=== PATIENT | male | born 1965 | race African-American/Black ===

== ENCOUNTER 2016-12-26 13:08 | Inpatient (IN) | payer OTHER ==
[2016-12-26 16:02] VITALS: BMI 29.6
--- NOTE | 2016-12-26 16:41 | HP ---
Admission [facility] Chief Complaint: i am here for rehab from alcohol,cocaine Allergies/Adverse Reactions: Allergies Allergy/AdvReac Type Severity Reaction Status Date / Time No Known Drug Allergies Allergy Verified 12/26/16 16:27 Iodinated Contrast Media - AdvReac Severe Vomiting Verified 12/26/16 16:27 Oral and [Iodinated Contrast Media - IV Dye] History of Present Illness: this 51 years old male with alcohol and cocaine dependence,seeking help for rehab,last detox aci from 12/22/16 to 12/26/16 asthma gerd migraine headache low back pain bipolar disorder longest period of sobriety 4 years Exam Limitations: No Limitations - Ebola screening Have you traveled outside of the country in the last 21 days: No Have you had contact with anyone from an Ebola affected area: No Have you been sick,other than usual withdrawal symptoms: No - Review of Systems Constitutional: No Symptoms Reported, Loss of Appetite EENT: reports: No Symptoms Reported Respiratory: reports: No Symptoms reported Cardiac: reports: No Symptoms Reported GI: reports: No Symptoms Reported : reports: No Symptoms Reported Musculoskeletal: reports: No Symptoms Reported Integumentary: reports: No Symptoms Reported Neuro: reports: No Symptoms reported Endocrine: reports: No Symptoms Reported Hematology: reports: No Symptoms Reported Psychiatric: reports: other (bipolar disorder) Other Systems: Reviewed and Negative Patient History - Patient Medical History Hx Anemia: No Hx Asthma: Yes (on albuterol inhaler) Hx Chronic Obstructive Pulmonary Disease (COPD): No Hx Cancer: No Hx Cardiac Disorders: No Hx Congestive Heart Failure: No Hx Hypertension: No Hx Hypercholesterolemia: No Hx Pacemaker: No HX Cerebrovascular Accident: No Hx Seizures: No Hx Diabetes: No Hx Gastrointestinal Disorders: Yes (GERD) Hx Liver Disease: No Hx Genitourinary Disorders: No Hx Sexually Transmitted Disorders: No Hx Renal Disease (ESRD): No Hx Thyroid Disease: No Hx Human Immunodeficiency Virus (HIV): No (NEGATIVE HX BUT ON PROPHYLAXIS DUE TO PARTNER POSITIVE STATUS PER PT.) Hx Hepatitis C: No Hx Depression: Yes Hx Suicide Attempt: No (DENIES) Hx Bipolar Disorder: Yes Hx Schizophrenia: No Other Medical History: no suicidal,no homicidal,low back pain,s/p surgry of right thumb - Patient Surgical History Past Surgical History: Yes Hx Neurologic Surgery: No Hx Cataract Extraction: No Hx Cardiac Surgery: No Hx Lung Surgery: No Hx Breast Surgery: No Hx Breast Biopsy: No Hx Abdominal Surgery: Yes (RT.INGUINAL REPAIR 1986) Hx Appendectomy: Yes (1984) Hx Cholecystectomy: No Hx Genitourinary Surgery: No Hx Section: No Hx Orthopedic Surgery: No Anesthesia Reaction: No - PPD History Previous Implant?: Yes Documented Results: Negative w/o proof Date: 12/09/15 Results: 0 mm PPD to be Administered?: Yes - Smoking Cessation Smoking history: Current every day smoker Have you smoked in the past 12 months: Yes Aproximately how many cigarettes per day: 5 Hx Chewing Tobacco Use: No Initiated information on smoking cessation: Yes 'Breaking Loose' booklet given: 12/26/16 - Substance & Tx. History Hx Alcohol Use: Yes Hx Substance Use: Yes Substance Use Type: Alcohol, Cocaine Hx Substance Use Treatment: Yes ([facility] 12/22/16 to 12/26/16) - Substances Abused Cocaine Route: Inhalation Frequency: Daily Amount used: $50-100 Age of first use: 19 Date of Last Use: 12/18/16 Alcohol-beer/cognac Route: Oral Frequency: Daily Amount used: 3 (40 oz.)/1 1 /2 pts. Age of first use: 10 Date of Last Use: 12/21/16 Family Disease History - Family Disease History Family Disease History: Diabetes: Mother, Heart Disease: Mother, CA: Mother, Respiratory: Mother Admission Physical Exam S - Vital Signs Vital Signs: Vital Signs - 24 hr 12/26/16 15:58 Temperature 98.3 F Pulse Rate 66 Respiratory 14 Rate Blood Pressure 140/107 - Physical General Appearance: Yes: Within Normal Limits HEENTM: Yes: Within Normal Limits, Normal ENT Inspection, LASHELL Respiratory: Yes: Within Normal Limits, Lungs Clear, Normal Breath Sounds Neck: Yes: Within Normal Limits Breast: Yes: Within Normal Limits Cardiology: Yes: Within Normal Limits, Regular Rhythm, Regular Rate, Tachycardia Abdominal: Yes: Within Normal Limits, Normal Bowel Sounds, Non Tender, Soft Genitourinary: Yes: Within Normal Limits Back: Yes: Within Normal Limits Musculoskeletal: Yes: Within Normal Limits Extremities: Yes: Within Normal Limits, Normal Range of Motion, Non-Tender Neurological: Yes: Within Normal Limits, oil well drilling manager II-XII NML intact, Alert, Motor Strength 5/5 Integumentary: Yes: Within Normal Limits Lymphatic: Yes: Within Normal Limits - Diagnostic (1) Cocaine dependence Current Visit: No Status: Acute Qualifiers: Qualified Code(s): F14.20 - Cocaine dependence, uncomplicated (2) Asthma Current Visit: No Status: Chronic Qualifiers: Qualified Code(s): J45.20 - Mild intermittent asthma, uncomplicated (3) GERD (gastroesophageal reflux disease) Current Visit: No Status: Chronic Qualifiers: Qualified Code(s): K21.9 - Gastro-esophageal reflux disease without esophagitis (4) Hx of migraine headaches Current Visit: No Status: Chronic (5) Nicotine dependence Current Visit: No Status: Chronic Qualifiers: Qualified Code(s): F17.210 - Nicotine dependence, cigarettes, uncomplicated (6) Bipolar disorder Current Visit: No Status: Suspected (7) Low back pain Current Visit: Yes Status: Acute Cleared for Admission [facility] - Detox or Rehab Claeared for Rehab Admission: Yes S Breath Alcohol Content Breath Alcohol Content: 0 Urine Drug Screen - Results Drug Screen Negative: No Urine Drug Screen Results: BZO-Benzodiazepines
[2016-12-26] MEDS ORDERED: MENTHOL/PHENOL 1 EACH UD MM PRN (16:49)
[2016-12-26] MEDS ORDERED: hydrOXYzine PAMOATE 50 MG CAPSULE (FP) PO PRN (16:49)
[2016-12-26] MEDS ORDERED: LOPERAMIDE HCL 2 MG CAPSULE PO PRN (16:49)
[2016-12-26] MEDS ORDERED: MAG HYDROX/AL HYDROX/SIMETH 30 ML UNIT-DOSE CUP PO PRN (16:49)
[2016-12-26] MEDS ORDERED: MAGNESIUM CITRATE 300 ML BOTTLE PO PRN (16:49)
[2016-12-26] MEDS ORDERED: IBUPROFEN 400 MG TABLET (FP) PO PRN (16:49)
[2016-12-26] MEDS ORDERED: MAGNESIUM HYDROX 2400MG/30ML ORAL SUSPENSION 30 ML CUP PO PRN (16:49)
[2016-12-26] MEDS ORDERED: guaiFENesin/D-METHORPHAN HB 10 ML UNIT-DOSE CUPS PO PRN (16:49)
[2016-12-26] MEDS ORDERED: TUBERCULIN PPD 5 TU/0.1ML VIAL ID ONE (18:15)
[2016-12-26] MEDS: SUMAtriptan SUCCINATE 50 MG TABLET PO PRN (18:26)
[2016-12-26] MEDS: BUDESONIDE/FORMETEROL FUMARATE 80/4.5 mcg INHALER IH SCH (21:12)
[2016-12-26] MEDS: THIAMINE HCL 100 MG TABLET (FP) PO SCH (21:12)
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
--- NOTE | 2016-12-27 09:31 | EKG ---
Test Reason : Blood Pressure : / mmHG Vent. Rate : 060 BPM Atrial Rate : 060 BPM P-R Int : 188 ms QRS Dur : 080 ms QT Int : 388 ms P-R-T Axes : 038 -02 002 degrees QTc Int : 388 ms NORMAL SINUS RHYTHM NONSPECIFIC T WAVE ABNORMALITY ABNORMAL ECG NO PREVIOUS ECGS AVAILABLE Confirmed by NUVIA ROE MD ([id number]) on 12/27/2016 9:30:25 AM Referred By: Confirmed By:NUVIA ROE MD
[2016-12-27] MEDS: PRENATAL VITAMINS W/ FOLIC ACID TABLET (FP) PO SCH (09:53)
[2016-12-27] MEDS: PANTOPRAZOLE 40 MG TABLET (FP) PO SCH (09:53)
[2016-12-27] MEDS: BUDESONIDE/FORMETEROL FUMARATE 80/4.5 mcg INHALER IH SCH ×2 (09:56→21:29)
[2016-12-27 10:07] LABS: MCH 30.1 pg (25.7-33.7); MCHC 32.9 g/dl (32.0-35.9); MEAN CELL VOLUME 91.5 fl (80-96); MEAN PLT VOLUME 9.3 fl (7.5-11.1); PLATELET COUNT 212 K/MM3 (134-434); RDW 14.6 % (11.9-15.9)
[2016-12-27 10:19] LABS: ALBUMIN 3.5 g/dl (3.4-5.0); ANION GAP 10 (8-16); CALCIUM 8.9 mg/dL (8.5-10.1); CO2 28 mmol/L (21-32); GLUCOSE,RANDOM 79 mg/dL (74-106)
[2016-12-27 10:25] LABS: ALK PHOS 46 U/L (45-117); BILIRUBIN,TOTAL 0.5 mg/dL (0.2-1.0); SGOT/AST 19 U/L (15-37); SGPT/ALT 20 U/L (12-78)
[2016-12-27 11:55] LABS: HIV 1 & 2 AB NEGATIVE; HIV 1 AGp24 NEGATIVE
[2016-12-27 14:56] LABS: URINE APPEARANCE CLEAR; URINE BILIRUBIN NEGATIVE (NEGATIVE); URINE BLOOD NEGATIVE (NEGATIVE); URINE COLOR STRAW; URINE GLUCOSE (UA) NEGATIVE (NEGATIVE); URINE KETONE NEGATIVE (NEGATIVE); URINE LEUK ESTERASE NEGATIVE (NEGATIVE); URINE NITRITE NEGATIVE (NEGATIVE); URINE PROTEIN NEGATIVE (NEGATIVE); URINE UROBILINOGEN NEGATIVE E.U./dl (0.2-1.0)
[2016-12-27] MEDS: THIAMINE HCL 100 MG TABLET (FP) PO SCH (21:18)
[2016-12-27] MEDS ORDERED: traZODone HCL 100 MG TABLET (FP) PO SCH (22:00)
[2016-12-28] MEDS: SUMAtriptan SUCCINATE 50 MG TABLET PO PRN (03:54)
[2016-12-28] MEDS: PANTOPRAZOLE 40 MG TABLET (FP) PO SCH (09:32)
[2016-12-28] MEDS: BUDESONIDE/FORMETEROL FUMARATE 80/4.5 mcg INHALER IH SCH ×2 (09:32→21:23)
[2016-12-28] MEDS: PRENATAL VITAMINS W/ FOLIC ACID TABLET (FP) PO SCH (09:32)
--- NOTE | 2016-12-28 11:15 | PN ---
Psychiatric Progress Note Vital Signs: Vital Signs Period Temp Pulse Resp BP Sys/Alejandra Pulse Ox Last 24 Hr 97.8 F 64-73 18-18 123-142/91-95 Date of Session: 12/28/16 Chief Complaint:: Headache HPI: Patient addressing Alcohol and Cocaine Dependence comorbid with Nicotine Dependence, Postraumatic Stress Disorder and Schizoaffective Disorder ROS: Asthma, GERD, Tinea Pedis, LBP Current Medications: Active Medications Generic Name Dose Route Start Last Admin Trade Name Freq PRN Reason Stop Dose Admin Acetaminophen 650 mg 12/26/16 16:49 Tylenol - PO Q4H PRN PAIN Al Hydroxide/Mg Hydroxide 30 ml 12/26/16 16:49 Mylanta Oral Suspension - PO Q6H PRN DYSPEPSIA Albuterol Sulfate 2 puff 12/26/16 16:52 Ventolin Hfa Inhaler - IH Q4H PRN ASTHMA Budesonide/Formoterol Fumarate 2 puff 12/26/16 22:00 12/28/16 09:32 Symbicort 80/4.5mcg - IH 2 puff BID FERMIN Administration Diphenhydramine HCl 50 mg 12/26/16 16:49 Benadryl - PO HSMR1 PRN INSOMNIA Eucalyptus/Menthol/Phenol/Sorbitol 1 each 12/26/16 16:49 Cepastat Lozenge - MM Q4H PRN SORE THROAT Guaifenesin 10 ml 12/26/16 16:49 Robitussin Dm - PO Q6H PRN COUGH Hydroxyzine Pamoate 50 mg 12/26/16 16:49 12/27/16 03:27 Vistaril - PO 50 mg Q4H PRN Administration AGITATION Ibuprofen 400 mg 12/26/16 16:49 Motrin - PO Q6H PRN SEVERE PAIN Loperamide HCl 4 mg 12/26/16 16:49 Imodium - PO Q6H PRN DIARRHEA Magnesium Citrate 300 ml 12/26/16 16:49 Citroma - PO Q48H PRN CONSTIPATION Magnesium Hydroxide 30 ml 12/26/16 16:49 Milk Of Magnesia - PO DAILY PRN CONSTIPATION Pantoprazole Sodium 40 mg 12/27/16 10:00 12/28/16 09:32 Protonix - PO 40 mg DAILY FERMIN Administration Multivit/Folic Acid/Iron 1 tab 12/27/16 10:00 12/28/16 09:32 Vitamins (Sjr) - PO 1 tab DAILY FERMIN Administration Pseudoephedrine/Triprolidine 1 combo 12/26/16 16:49 Actifed - PO TID PRN NASAL CONGESTION Sumatriptan Succinate 50 mg 12/26/16 16:52 12/28/16 03:54 Imitrex - PO 50 mg DAILY PRN Administration HEADACHE Thiamine HCl 100 mg 12/26/16 22:00 12/27/16 21:18 Vitamin B1 - PO 100 mg HS FERMIN Administration Trazodone HCl 100 mg 12/27/16 22:00 12/27/16 21:17 Desyrel - PO 100 mg HS FERMIN Administration Medication(s) Change(s): 1) D/C Trazadone 100 mg po HS. 2) Doxepin 50 mg po HS Current Side Effect: Yes (headache) Lab tests ordered: Yes Lab tests reviewed: Yes Provider note:: Patient reports that after taking Trazadone before going to bed last night, he woke up in the middle of the night with a terrible headach. He said that he had experienced headache before after taking Trazadone. Claims this headache is different from his regular migraine headach he usually experiences. Doxepin, an alternative medication fr sleep was discussed with patient and he agreed to try it Total face to face time:: 25 Mental Status Exam - Mental Status Exam Alert and Oriented to: Time, Place, Person Cognitive Function: Fair Mood: Hopeful, Euthymic Affect: Appropriate Patient Behavior: Cooperative Speech Pattern: Clear Voice Loudness: Normal Thought Process: Intact, Goal Oriented Thought Disorder: Not Present Hallucinations: Denies Suicidal Ideation: Denies Homicidal Ideation: Denies Insight/Judgement: Fair Sleep: Poorly Appetite: Good Muscle strength/Tone: Normal Gait/Station: Normal Psychiatric Treatment Plan - Problem List (1) Alcohol dependence Current Visit: Yes (2) Cocaine dependence Current Visit: No Qualifiers: Substance use status: uncomplicated Qualified Code(s): F14.20 - Cocaine dependence, uncomplicated (3) Nicotine dependence Current Visit: No Qualifiers: Nicotine product type: cigarettes Substance use status: uncomplicated Qualified Code(s): F17.210 - Nicotine dependence, cigarettes, uncomplicated (4) Low back pain Current Visit: Yes (5) Tinea pedis Current Visit: No Qualifiers: Laterality: bilateral Qualified Code(s): B35.3 - Tinea pedis (6) Asthma Current Visit: No Qualifiers: Asthma severity: mild intermittent Asthma complication type: uncomplicated Qualified Code(s): J45.20 - Mild intermittent asthma, uncomplicated (7) GERD (gastroesophageal reflux disease) Current Visit: No Qualifiers: Esophagitis presence: without esophagitis Qualified Code(s): K21.9 - Gastro-esophageal reflux disease without esophagitis (8) Hx of migraine headaches Current Visit: No (9) PTSD (post-traumatic stress disorder) Current Visit: Yes (10) Schizoaffective disorder Current Visit: Yes Initial treatment plan: 1) Discontinue Trazadone 100 mg po HS. 2) Start Doxepin 50 mg po HS for insomnia. 3) Monitor progress
[2016-12-28] MEDS: THIAMINE HCL 100 MG TABLET (FP) PO SCH (21:15)
[2016-12-28] MEDS ORDERED: DOXEPIN HCL 50 MG CAPSULE PO SCH (22:00)
[2016-12-29] MEDS: SUMAtriptan SUCCINATE 50 MG TABLET PO PRN (06:14)
[2016-12-29] MEDS: PANTOPRAZOLE 40 MG TABLET (FP) PO SCH (10:07)
[2016-12-29] MEDS: PRENATAL VITAMINS W/ FOLIC ACID TABLET (FP) PO SCH (10:07)
[2016-12-29] MEDS: BUDESONIDE/FORMETEROL FUMARATE 80/4.5 mcg INHALER IH SCH ×2 (10:07→21:12)
--- NOTE | 2016-12-29 11:13 | PN ---
Psychiatric Progress Note Vital Signs: Vital Signs Period Temp Pulse Resp BP Sys/Alejandra Pulse Ox Last 24 Hr 97.6 F 65 18-18 146/96 Date of Session: 12/29/16 Chief Complaint:: Headache HPI: Patient addressing Alcohol and Cocaine Dependence comorbid with Nicotine Dependence, Postraumatic Stress Disorder and Schizoaffective Disorder ROS: Asthma, GERD, Tinea Pedis, LBP Current Medications: Active Medications Generic Name Dose Route Start Last Admin Trade Name Freq PRN Reason Stop Dose Admin Acetaminophen 650 mg 12/26/16 16:49 Tylenol - PO Q4H PRN PAIN Al Hydroxide/Mg Hydroxide 30 ml 12/26/16 16:49 Mylanta Oral Suspension - PO Q6H PRN DYSPEPSIA Albuterol Sulfate 2 puff 12/26/16 16:52 Ventolin Hfa Inhaler - IH Q4H PRN ASTHMA Budesonide/Formoterol Fumarate 2 puff 12/26/16 22:00 12/29/16 10:07 Symbicort 80/4.5mcg - IH 2 puff BID FERMIN Administration Diphenhydramine HCl 50 mg 12/26/16 16:49 Benadryl - PO HSMR1 PRN INSOMNIA Eucalyptus/Menthol/Phenol/Sorbitol 1 each 12/26/16 16:49 Cepastat Lozenge - MM Q4H PRN SORE THROAT Guaifenesin 10 ml 12/26/16 16:49 Robitussin Dm - PO Q6H PRN COUGH Hydroxyzine Pamoate 50 mg 12/26/16 16:49 12/27/16 03:27 Vistaril - PO 50 mg Q4H PRN Administration AGITATION Ibuprofen 400 mg 12/26/16 16:49 12/29/16 10:10 Motrin - PO 400 mg Q6H PRN Administration SEVERE PAIN Loperamide HCl 4 mg 12/26/16 16:49 Imodium - PO Q6H PRN DIARRHEA Magnesium Citrate 300 ml 12/26/16 16:49 Citroma - PO Q48H PRN CONSTIPATION Magnesium Hydroxide 30 ml 12/26/16 16:49 Milk Of Magnesia - PO DAILY PRN CONSTIPATION Pantoprazole Sodium 40 mg 12/27/16 10:00 12/29/16 10:07 Protonix - PO 40 mg DAILY FERMIN Administration Multivit/Folic Acid/Iron 1 tab 12/27/16 10:00 12/29/16 10:07 Vitamins (Sjr) - PO 1 tab DAILY FERMIN Administration Pseudoephedrine/Triprolidine 1 combo 12/26/16 16:49 Actifed - PO TID PRN NASAL CONGESTION Sumatriptan Succinate 50 mg 12/26/16 16:52 12/29/16 06:14 Imitrex - PO 50 mg DAILY PRN Administration HEADACHE Thiamine HCl 100 mg 12/26/16 22:00 12/28/16 21:15 Vitamin B1 - PO 100 mg HS FERMIN Administration Medication(s) Change(s): D/C Doxepin 50 mg po HS Current Side Effect: No Lab tests ordered: Yes Lab tests reviewed: Yes Provider note:: Patient was switched from Trazadone to Doxepin because he complained of experiencing headache yesterday morning after taking Trazadone the night before. He took Doxepin last night and claims that he woke up this morning again with a terrible headache. Told health science writer that he had some relieve from that headache only after taking imitrex. He requests that Doxepin be discontinued and see what happens taking onle Benadryl. He said that while in detox, he took Benadryl and did not experienced headache. Total face to face time:: 25 Mental Status Exam - Mental Status Exam Alert and Oriented to: Time, Place, Person Cognitive Function: Fair Mood: Hopeful, Euthymic Affect: Appropriate Patient Behavior: Cooperative Speech Pattern: Clear Voice Loudness: Normal Thought Process: Intact, Goal Oriented Thought Disorder: Not Present Hallucinations: Denies Suicidal Ideation: Denies Homicidal Ideation: Denies Insight/Judgement: Fair Sleep: Poorly Appetite: Good Muscle strength/Tone: Normal Gait/Station: Normal Psychiatric Treatment Plan - Problem List (1) Alcohol dependence Current Visit: Yes (2) Cocaine dependence Current Visit: No Qualifiers: Substance use status: uncomplicated Qualified Code(s): F14.20 - Cocaine dependence, uncomplicated (3) Nicotine dependence Current Visit: No Qualifiers: Nicotine product type: cigarettes Substance use status: uncomplicated Qualified Code(s): F17.210 - Nicotine dependence, cigarettes, uncomplicated (4) Low back pain Current Visit: Yes (5) Tinea pedis Current Visit: No Qualifiers: Laterality: bilateral Qualified Code(s): B35.3 - Tinea pedis (6) Asthma Current Visit: No Qualifiers: Asthma severity: mild intermittent Asthma complication type: uncomplicated Qualified Code(s): J45.20 - Mild intermittent asthma, uncomplicated (7) GERD (gastroesophageal reflux disease) Current Visit: No Qualifiers: Esophagitis presence: without esophagitis Qualified Code(s): K21.9 - Gastro-esophageal reflux disease without esophagitis (8) Hx of migraine headaches Current Visit: No (9) PTSD (post-traumatic stress disorder) Current Visit: Yes (10) Schizoaffective disorder Current Visit: Yes Initial treatment plan: 1) Discontinue Doxepin 50 mg po HS. 2) Monitor progress
[2016-12-29] MEDS: ACETAMINOPHEN 325 MG TABLET (FP) PO PRN (13:47)
[2016-12-29] MEDS ORDERED: IBUPROFEN 600 MG TABLET (FP) PO PRN (15:03)
[2016-12-29] MEDS ORDERED: LIDOCAINE 5% TOPICAL PATCH TP SCH (15:15)
[2016-12-29] MEDS: LIDOCAINE 5% TOPICAL PATCH TP SCH (15:50)
[2016-12-29] MEDS: THIAMINE HCL 100 MG TABLET (FP) PO SCH (21:11)
[2016-12-29] MEDS: diphenhydrAMINE HCL 50 MG CAPSULE PO PRN (21:14)
[2016-12-29] MEDS ORDERED: LIDOCAINE PATCH REMOVAL MC SCH (22:00)
[2016-12-29] MEDS: LIDOCAINE PATCH REMOVAL MC SCH (22:28)
[2016-12-30] MEDS ORDERED: cloNIDine HCL 0.1 MG TABLET PO ONE (06:54)
--- NOTE | 2016-12-30 08:29 | PN ---
S Progress Note Note: HISTORY OF HYPERTENSION,NON COMPLIANCE,STATED USE TO TAKE LISINOPRIL Vital Signs Period Temp Pulse Resp BP Sys/Alejandra Pulse Ox Last 24 Hr 98.5 F 65 18-18 138/103 Vital Signs Temperature 98.5 F 12/30/16 08:14 Pulse Rate 65 12/30/16 08:14 Respiratory Rate 18 12/30/16 08:14 Blood Pressure 138/103 12/30/16 08:14 O2 Sat by Pulse Oximetry (%) CLONIDINE 0.1 MG PO GIVEN WILL GIVE LISINOPRIL 10 MGS PO DAILY VITAL SIGNS MONITORING NO CHEST PAIN,NO SOB,NO DIZZINESS
[2016-12-30] MEDS: LISINOPRIL 10 MG TABLET (FP) PO SCH (09:31)
[2016-12-30] MEDS: BUDESONIDE/FORMETEROL FUMARATE 80/4.5 mcg INHALER IH SCH ×2 (09:31→21:13)
[2016-12-30] MEDS: PANTOPRAZOLE 40 MG TABLET (FP) PO SCH (09:31)
[2016-12-30] MEDS: LIDOCAINE 5% TOPICAL PATCH TP SCH (09:31)
[2016-12-30] MEDS: PRENATAL VITAMINS W/ FOLIC ACID TABLET (FP) PO SCH (09:31)
[2016-12-30] MEDS: THIAMINE HCL 100 MG TABLET (FP) PO SCH (21:13)
[2016-12-30] MEDS: LIDOCAINE PATCH REMOVAL MC SCH (21:14)
[2016-12-30] MEDS: diphenhydrAMINE HCL 50 MG CAPSULE PO PRN (23:00)
[2016-12-31] MEDS: PRENATAL VITAMINS W/ FOLIC ACID TABLET (FP) PO SCH (09:02)
[2016-12-31] MEDS: PANTOPRAZOLE 40 MG TABLET (FP) PO SCH (09:02)
[2016-12-31] MEDS: LISINOPRIL 10 MG TABLET (FP) PO SCH (09:02)
[2016-12-31] MEDS: BUDESONIDE/FORMETEROL FUMARATE 80/4.5 mcg INHALER IH SCH ×2 (09:02→21:26)
[2016-12-31] MEDS: LIDOCAINE 5% TOPICAL PATCH TP SCH (09:02)
[2016-12-31] MEDS: THIAMINE HCL 100 MG TABLET (FP) PO SCH (21:26)
[2016-12-31] MEDS: diphenhydrAMINE HCL 50 MG CAPSULE PO PRN (21:27)
[2016-12-31] MEDS: LIDOCAINE PATCH REMOVAL MC SCH (21:28)
[2016-12-31] MEDS ORDERED: HYDROCHLOROTHIAZIDE 25 MG TABLET (FP) PO SCH (21:45)
[2017-01-01] MEDS ORDERED: HYDROCHLOROTHIAZIDE 25 MG TABLET (FP) PO SCH (06:03)
[2017-01-01] MEDS ORDERED: LISINOPRIL 10 MG TABLET (FP) PO SCH (06:04)
[2017-01-01] MEDS: HYDROCHLOROTHIAZIDE 25 MG TABLET (FP) PO SCH (06:30)
[2017-01-01] MEDS: LISINOPRIL 10 MG TABLET (FP) PO SCH (06:30)
[2017-01-01] MEDS: PRENATAL VITAMINS W/ FOLIC ACID TABLET (FP) PO SCH (09:39)
[2017-01-01] MEDS: BUDESONIDE/FORMETEROL FUMARATE 80/4.5 mcg INHALER IH SCH ×2 (09:39→21:12)
[2017-01-01] MEDS: PANTOPRAZOLE 40 MG TABLET (FP) PO SCH (09:39)
[2017-01-01] MEDS: LIDOCAINE 5% TOPICAL PATCH TP SCH (09:40)
[2017-01-01] MEDS: CYCLOBENZAPRINE HCL 10 MG TABLET (FP) PO PRN ×2 (14:45→21:11)
[2017-01-01] MEDS: SUMAtriptan SUCCINATE 50 MG TABLET PO PRN (16:41)
[2017-01-01] MEDS: diphenhydrAMINE HCL 50 MG CAPSULE PO PRN (21:11)
[2017-01-01] MEDS: THIAMINE HCL 100 MG TABLET (FP) PO SCH (21:11)
[2017-01-01] MEDS: LIDOCAINE PATCH REMOVAL MC SCH (22:00)
[2017-01-02] MEDS: LISINOPRIL 10 MG TABLET (FP) PO SCH (06:30)
[2017-01-02] MEDS: HYDROCHLOROTHIAZIDE 25 MG TABLET (FP) PO SCH (06:30)
[2017-01-02] MEDS: SUMAtriptan SUCCINATE 50 MG TABLET PO PRN (07:56)
[2017-01-02] MEDS: BUDESONIDE/FORMETEROL FUMARATE 80/4.5 mcg INHALER IH SCH ×2 (10:01→21:17)
[2017-01-02] MEDS: PRENATAL VITAMINS W/ FOLIC ACID TABLET (FP) PO SCH (10:01)
[2017-01-02] MEDS: PANTOPRAZOLE 40 MG TABLET (FP) PO SCH (10:01)
[2017-01-02] MEDS: LIDOCAINE 5% TOPICAL PATCH TP SCH (10:02)
[2017-01-02] MEDS: CYCLOBENZAPRINE HCL 10 MG TABLET (FP) PO PRN (21:16)
[2017-01-02] MEDS: THIAMINE HCL 100 MG TABLET (FP) PO SCH (21:16)
[2017-01-02] MEDS: diphenhydrAMINE HCL 50 MG CAPSULE PO PRN (21:17)
[2017-01-02] MEDS: LIDOCAINE PATCH REMOVAL MC SCH (21:17)
[2017-01-03] MEDS: ALBUTEROL SO4 6.7 GM HFA INHALER IH PRN (02:39)
[2017-01-03] MEDS: ACETAMINOPHEN 325 MG TABLET (FP) PO PRN (06:11)
[2017-01-03] MEDS: HYDROCHLOROTHIAZIDE 25 MG TABLET (FP) PO SCH (06:11)
[2017-01-03] MEDS: LISINOPRIL 10 MG TABLET (FP) PO SCH (06:11)
[2017-01-03] MEDS: P-EPHED 60MG/TRIPROLIDI 2.5MG TABLET PO PRN (07:17)
[2017-01-03] MEDS: SUMAtriptan SUCCINATE 50 MG TABLET PO PRN (09:03)
[2017-01-03] MEDS: PRENATAL VITAMINS W/ FOLIC ACID TABLET (FP) PO SCH (09:44)
[2017-01-03] MEDS: LIDOCAINE 5% TOPICAL PATCH TP SCH (09:44)
[2017-01-03] MEDS: PANTOPRAZOLE 40 MG TABLET (FP) PO SCH (09:44)
[2017-01-03] MEDS: BUDESONIDE/FORMETEROL FUMARATE 80/4.5 mcg INHALER IH SCH ×2 (09:45→21:17)
[2017-01-03] MEDS: THIAMINE HCL 100 MG TABLET (FP) PO SCH (21:16)
[2017-01-03] MEDS: diphenhydrAMINE HCL 50 MG CAPSULE PO PRN (21:16)
[2017-01-03] MEDS: LIDOCAINE PATCH REMOVAL MC SCH (21:17)
[2017-01-04] MEDS: LISINOPRIL 10 MG TABLET (FP) PO SCH (06:02)
[2017-01-04] MEDS: HYDROCHLOROTHIAZIDE 25 MG TABLET (FP) PO SCH (06:02)
[2017-01-04] MEDS: BUDESONIDE/FORMETEROL FUMARATE 80/4.5 mcg INHALER IH SCH ×2 (09:51→22:56)
[2017-01-04] MEDS: ALBUTEROL SO4 6.7 GM HFA INHALER IH PRN (09:51)
[2017-01-04] MEDS: LIDOCAINE 5% TOPICAL PATCH TP SCH (09:51)
[2017-01-04] MEDS: PANTOPRAZOLE 40 MG TABLET (FP) PO SCH (09:52)
[2017-01-04] MEDS: PRENATAL VITAMINS W/ FOLIC ACID TABLET (FP) PO SCH (09:52)
[2017-01-04] MEDS: diphenhydrAMINE HCL 50 MG CAPSULE PO PRN (22:55)
[2017-01-04] MEDS: THIAMINE HCL 100 MG TABLET (FP) PO SCH (22:55)
[2017-01-04] MEDS: LIDOCAINE PATCH REMOVAL MC SCH (22:57)
[2017-01-05] MEDS: HYDROCHLOROTHIAZIDE 25 MG TABLET (FP) PO SCH (06:42)
[2017-01-05] MEDS: LISINOPRIL 10 MG TABLET (FP) PO SCH (06:42)
[2017-01-05] MEDS: BUDESONIDE/FORMETEROL FUMARATE 80/4.5 mcg INHALER IH SCH ×2 (09:32→23:27)
[2017-01-05] MEDS: PANTOPRAZOLE 40 MG TABLET (FP) PO SCH (09:32)
[2017-01-05] MEDS: PRENATAL VITAMINS W/ FOLIC ACID TABLET (FP) PO SCH (09:32)
[2017-01-05] MEDS: LIDOCAINE 5% TOPICAL PATCH TP SCH (09:33)
[2017-01-05] MEDS: THIAMINE HCL 100 MG TABLET (FP) PO SCH (21:26)
[2017-01-05] MEDS: diphenhydrAMINE HCL 50 MG CAPSULE PO PRN (21:26)
[2017-01-05] MEDS: LIDOCAINE PATCH REMOVAL MC SCH (21:53)
[2017-01-06] MEDS: LISINOPRIL 10 MG TABLET (FP) PO SCH (06:21)
[2017-01-06] MEDS: HYDROCHLOROTHIAZIDE 25 MG TABLET (FP) PO SCH (06:21)
[2017-01-06] MEDS: PANTOPRAZOLE 40 MG TABLET (FP) PO SCH (09:47)
[2017-01-06] MEDS: PRENATAL VITAMINS W/ FOLIC ACID TABLET (FP) PO SCH (09:47)
[2017-01-06] MEDS: LIDOCAINE 5% TOPICAL PATCH TP SCH (09:48)
[2017-01-06] MEDS: BUDESONIDE/FORMETEROL FUMARATE 80/4.5 mcg INHALER IH SCH ×2 (09:48→21:08)
[2017-01-06] MEDS: LIDOCAINE PATCH REMOVAL MC SCH (21:08)
[2017-01-06] MEDS: THIAMINE HCL 100 MG TABLET (FP) PO SCH (21:08)
[2017-01-06] MEDS: diphenhydrAMINE HCL 50 MG CAPSULE PO PRN (21:08)
[2017-01-07] MEDS: HYDROCHLOROTHIAZIDE 25 MG TABLET (FP) PO SCH (06:33)
[2017-01-07] MEDS: LISINOPRIL 10 MG TABLET (FP) PO SCH (06:34)
[2017-01-07] MEDS: BUDESONIDE/FORMETEROL FUMARATE 80/4.5 mcg INHALER IH SCH ×2 (09:47→21:35)
[2017-01-07] MEDS: PANTOPRAZOLE 40 MG TABLET (FP) PO SCH (09:47)
[2017-01-07] MEDS: PRENATAL VITAMINS W/ FOLIC ACID TABLET (FP) PO SCH (09:47)
[2017-01-07] MEDS: SUMAtriptan SUCCINATE 50 MG TABLET PO PRN (09:47)
[2017-01-07] MEDS: LIDOCAINE 5% TOPICAL PATCH TP SCH (09:49)
[2017-01-07] MEDS: THIAMINE HCL 100 MG TABLET (FP) PO SCH (21:13)
[2017-01-07] MEDS: diphenhydrAMINE HCL 50 MG CAPSULE PO PRN (21:13)
[2017-01-07] MEDS: LIDOCAINE PATCH REMOVAL MC SCH (21:35)
[2017-01-08] MEDS: HYDROCHLOROTHIAZIDE 25 MG TABLET (FP) PO SCH (06:27)
[2017-01-08] MEDS: LISINOPRIL 10 MG TABLET (FP) PO SCH (06:27)
[2017-01-08] MEDS ORDERED: PT OWN MED DRAWER 7, Y5N ONE (08:22)
[2017-01-08] MEDS: ACETAMINOPHEN 325 MG TABLET (FP) PO PRN (08:23)
[2017-01-08] MEDS: LIDOCAINE 5% TOPICAL PATCH TP SCH (09:34)
[2017-01-08] MEDS: PRENATAL VITAMINS W/ FOLIC ACID TABLET (FP) PO SCH (09:35)
[2017-01-08] MEDS: BUDESONIDE/FORMETEROL FUMARATE 80/4.5 mcg INHALER IH SCH ×2 (09:35→21:30)
[2017-01-08] MEDS: PANTOPRAZOLE 40 MG TABLET (FP) PO SCH (09:35)
[2017-01-08] MEDS: SUMAtriptan SUCCINATE 50 MG TABLET PO PRN (11:56)
[2017-01-08] MEDS: THIAMINE HCL 100 MG TABLET (FP) PO SCH (21:29)
[2017-01-08] MEDS: diphenhydrAMINE HCL 50 MG CAPSULE PO PRN (21:29)
[2017-01-08] MEDS: LIDOCAINE PATCH REMOVAL MC SCH (21:30)
[2017-01-09] MEDS: LISINOPRIL 10 MG TABLET (FP) PO SCH (06:31)
[2017-01-09] MEDS: HYDROCHLOROTHIAZIDE 25 MG TABLET (FP) PO SCH (06:31)
[2017-01-09] MEDS: P-EPHED 60MG/TRIPROLIDI 2.5MG TABLET PO PRN (07:28)
[2017-01-09] MEDS: PRENATAL VITAMINS W/ FOLIC ACID TABLET (FP) PO SCH (09:22)
[2017-01-09] MEDS: BUDESONIDE/FORMETEROL FUMARATE 80/4.5 mcg INHALER IH SCH ×2 (09:22→21:21)
[2017-01-09] MEDS: PANTOPRAZOLE 40 MG TABLET (FP) PO SCH (09:22)
[2017-01-09] MEDS: LIDOCAINE 5% TOPICAL PATCH TP SCH (09:23)
[2017-01-09] MEDS: SUMAtriptan SUCCINATE 50 MG TABLET PO PRN (13:31)
[2017-01-09] MEDS: THIAMINE HCL 100 MG TABLET (FP) PO SCH (21:20)
[2017-01-09] MEDS: LIDOCAINE PATCH REMOVAL MC SCH (21:20)
[2017-01-09] MEDS: diphenhydrAMINE HCL 50 MG CAPSULE PO PRN (23:09)
[2017-01-10] MEDS: HYDROCHLOROTHIAZIDE 25 MG TABLET (FP) PO SCH (06:23)
[2017-01-10] MEDS: LISINOPRIL 10 MG TABLET (FP) PO SCH (06:23)
[2017-01-10] MEDS: LIDOCAINE 5% TOPICAL PATCH TP SCH (09:29)
[2017-01-10] MEDS: PANTOPRAZOLE 40 MG TABLET (FP) PO SCH (09:29)
[2017-01-10] MEDS: SUMAtriptan SUCCINATE 50 MG TABLET PO PRN (09:29)
[2017-01-10] MEDS: PRENATAL VITAMINS W/ FOLIC ACID TABLET (FP) PO SCH (09:29)
[2017-01-10] MEDS: BUDESONIDE/FORMETEROL FUMARATE 80/4.5 mcg INHALER IH SCH ×2 (09:31→21:41)
[2017-01-10] MEDS: P-EPHED 60MG/TRIPROLIDI 2.5MG TABLET PO PRN (10:51)
[2017-01-10] MEDS: THIAMINE HCL 100 MG TABLET (FP) PO SCH (21:41)
[2017-01-10] MEDS: LIDOCAINE PATCH REMOVAL MC SCH (21:41)
[2017-01-10] MEDS: diphenhydrAMINE HCL 50 MG CAPSULE PO PRN (21:41)
[2017-01-11] MEDS: HYDROCHLOROTHIAZIDE 25 MG TABLET (FP) PO SCH (07:10)
[2017-01-11] MEDS: LISINOPRIL 10 MG TABLET (FP) PO SCH (07:11)
[2017-01-11] MEDS: PRENATAL VITAMINS W/ FOLIC ACID TABLET (FP) PO SCH (09:31)
[2017-01-11] MEDS: LIDOCAINE 5% TOPICAL PATCH TP SCH (09:31)
[2017-01-11] MEDS: PANTOPRAZOLE 40 MG TABLET (FP) PO SCH (09:31)
[2017-01-11] MEDS: BUDESONIDE/FORMETEROL FUMARATE 80/4.5 mcg INHALER IH SCH ×2 (09:33→21:08)
[2017-01-11] MEDS: SUMAtriptan SUCCINATE 50 MG TABLET PO PRN (13:51)
--- NOTE | 2017-01-11 14:57 | PN ---
Psychiatric Progress Note Vital Signs: Vital Signs Period Temp Pulse Resp BP Sys/Alejandra Pulse Ox Last 24 Hr 98.3 F 74-74 18-18 115-127/74-86 Date of Session: 01/11/17 Chief Complaint:: Discharge Note HPI: Patient addressing Alcohol and Cocaine Dependence comorbid with Nicotine Dependence, Posttraumatic Stres Disorder and Schizoaffective Disorder ROS: Asthma, GERD, LBP and Tinea Pedis were medically managed Current Medications: Active Medications Generic Name Dose Route Start Last Admin Trade Name Freq PRN Reason Stop Dose Admin Acetaminophen 650 mg 12/26/16 16:49 01/08/17 08:23 Tylenol - PO 650 mg Q4H PRN Administration PAIN Al Hydroxide/Mg Hydroxide 30 ml 12/26/16 16:49 Mylanta Oral Suspension - PO Q6H PRN DYSPEPSIA Albuterol Sulfate 2 puff 12/26/16 16:52 01/04/17 09:51 Ventolin Hfa Inhaler - IH 2 puff Q4H PRN Administration ASTHMA Budesonide/Formoterol Fumarate 2 puff 12/26/16 22:00 01/11/17 09:33 Symbicort 80/4.5mcg - IH Not Given BID FERMIN Cyclobenzaprine HCl 10 mg 01/01/17 10:17 01/02/17 21:16 Flexeril - PO 10 mg TID PRN Administration MUSCLE SPASMS Diphenhydramine HCl 50 mg 12/26/16 16:49 01/10/17 21:41 Benadryl - PO 50 mg HSMR1 PRN Administration INSOMNIA Eucalyptus/Menthol/Phenol/Sorbitol 1 each 12/26/16 16:49 Cepastat Lozenge - MM Q4H PRN SORE THROAT Guaifenesin 10 ml 12/26/16 16:49 Robitussin Dm - PO Q6H PRN COUGH Hydrochlorothiazide 50 mg 01/01/17 06:30 01/11/17 07:10 Hctz - PO 50 mg DAILY@0600 FERMIN Administration Hydroxyzine Pamoate 50 mg 12/26/16 16:49 12/27/16 03:27 Vistaril - PO 50 mg Q4H PRN Administration AGITATION Ibuprofen 600 mg 12/29/16 15:03 12/29/16 21:14 Motrin - PO 600 mg Q6H PRN Administration PAIN Lidocaine 1 patch 12/29/16 15:30 01/11/17 09:31 Lidoderm Patch - TP 1 patch DAILY FERMIN Administration Lisinopril 10 mg 01/01/17 06:30 01/11/17 07:11 Prinivil PO 10 mg DAILY@0600 FERMIN Administration Loperamide HCl 4 mg 12/26/16 16:49 Imodium - PO Q6H PRN DIARRHEA Magnesium Citrate 300 ml 12/26/16 16:49 Citroma - PO Q48H PRN CONSTIPATION Magnesium Hydroxide 30 ml 12/26/16 16:49 Milk Of Magnesia - PO DAILY PRN CONSTIPATION Miscellaneous 1 each 12/29/16 22:00 01/10/17 21:41 Lidoderm Patch Removal MC 1 each DAILY@2200 FERMIN Administration Pantoprazole Sodium 40 mg 12/27/16 10:00 01/11/17 09:31 Protonix - PO 40 mg DAILY FERMIN Administration Multivit/Folic Acid/Iron 1 tab 12/27/16 10:00 01/11/17 09:31 Vitamins (Sjr) - PO 1 tab DAILY FERMIN Administration Pseudoephedrine/Triprolidine 1 combo 12/26/16 16:49 01/10/17 10:51 Actifed - PO 1 combo TID PRN Administration NASAL CONGESTION Sumatriptan Succinate 50 mg 12/26/16 16:52 01/11/17 13:51 Imitrex - PO 50 mg DAILY PRN Administration HEADACHE Thiamine HCl 100 mg 12/26/16 22:00 01/10/17 21:41 Vitamin B1 - PO 100 mg HS FERMIN Administration Current Side Effect: No Lab tests ordered: Yes Lab tests reviewed: Yes Provider note:: Patient will complete this program on 01/12/17. He has met his treatment goals but refuses to accept referral to outpatient treatment. Told bid writer that from his participation in this program, he has learned the importance of making meeting and having a sponsor. He is stable for dischargeon 01/12/17 Total face to face time:: 35 Mental Status Exam - Mental Status Exam Alert and Oriented to: Time, Place, Person Cognitive Function: Fair Patient Appearance: Well Groomed Mood: Hopeful, Euthymic Affect: Appropriate Patient Behavior: Cooperative Speech Pattern: Clear Voice Loudness: Normal Thought Process: Intact, Goal Oriented Thought Disorder: Not Present Hallucinations: Denies Suicidal Ideation: Denies Homicidal Ideation: Denies Insight/Judgement: Fair Sleep: Fair Appetite: Good Muscle strength/Tone: Normal Gait/Station: Normal Psychiatric Treatment Plan - Problem List (1) Alcohol dependence Current Visit: Yes (2) Cocaine dependence Current Visit: No Qualifiers: Substance use status: uncomplicated Qualified Code(s): F14.20 - Cocaine dependence, uncomplicated (3) Nicotine dependence Current Visit: No Qualifiers: Nicotine product type: cigarettes Substance use status: uncomplicated Qualified Code(s): F17.210 - Nicotine dependence, cigarettes, uncomplicated (4) Low back pain Current Visit: Yes (5) Tinea pedis Current Visit: No Qualifiers: Laterality: bilateral Qualified Code(s): B35.3 - Tinea pedis (6) Asthma Current Visit: No Qualifiers: Asthma severity: mild intermittent Asthma complication type: uncomplicated Qualified Code(s): J45.20 - Mild intermittent asthma, uncomplicated (7) GERD (gastroesophageal reflux disease) Current Visit: No Qualifiers: Esophagitis presence: without esophagitis Qualified Code(s): K21.9 - Gastro-esophageal reflux disease without esophagitis (8) Hx of migraine headaches Current Visit: No (9) PTSD (post-traumatic stress disorder) Current Visit: Yes (10) Schizoaffective disorder Current Visit: Yes Initial treatment plan: Patient is discharged tomorrow and plans to attend AA/NA
[2017-01-11] MEDS: THIAMINE HCL 100 MG TABLET (FP) PO SCH (21:07)
[2017-01-11] MEDS: LIDOCAINE PATCH REMOVAL MC SCH (21:07)
[2017-01-11] MEDS: diphenhydrAMINE HCL 50 MG CAPSULE PO PRN (21:07)
[2017-01-12 06:33] VITALS: TEMP 98.4
[2017-01-12] MEDS: HYDROCHLOROTHIAZIDE 25 MG TABLET (FP) PO SCH (07:35)
[2017-01-12] MEDS: LISINOPRIL 10 MG TABLET (FP) PO SCH (07:35)
[2017-01-12 07:43] VITALS: BP 106/71; PULSE 90
[2017-01-12] MEDS: LIDOCAINE 5% TOPICAL PATCH TP SCH (09:30)
[2017-01-12] MEDS: PRENATAL VITAMINS W/ FOLIC ACID TABLET (FP) PO SCH (09:30)
[2017-01-12] MEDS: PANTOPRAZOLE 40 MG TABLET (FP) PO SCH (09:30)
[2017-01-12] MEDS: BUDESONIDE/FORMETEROL FUMARATE 80/4.5 mcg INHALER IH SCH (09:30)
== END 2017-01-12 09:25 | disposition home or self-care (01) | DRG 772 ==
LOC: YASAS 13:08 → Y3W 17:14
PROVIDERS: ADMIT Psychiatry & Neurology Psychiatry; ATTEND Psychiatry & Neurology Psychiatry
PROC: HZ42ZZZ Group Counseling for Substance Abuse Treatment, Cognitive-Behavioral (ICD-10-PCS; principal; 2017-01-12)
DX: F10.20 Alcohol dependence, uncomplicated (principal); F14.20 Cocaine dependence, uncomplicated; F17.210 Nicotine dependence, cigarettes, uncomplicated; F25.9 Schizoaffective disorder, unspecified; F43.10 Post-traumatic stress disorder, unspecified; J45.20 Mild intermittent asthma, uncomplicated; K21.9 Gastro-esophageal reflux disease without esophagitis; Z86.69 Personal history of other diseases of the nervous system and sense organs
CPT/HCPCS: 36415; 80053; 81003; 85027; 86593; 87389; 93005; 93010

== ENCOUNTER 2017-03-25 10:46 | Inpatient (IN) | payer OTHER ==
[2017-03-25 11:57] VITALS: BMI 28.9
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
[2017-03-25] MEDS ORDERED: MAGNESIUM CITRATE 300 ML BOTTLE PO PRN (14:28)
[2017-03-25] MEDS ORDERED: LOPERAMIDE HCL 2 MG CAPSULE PO PRN (14:28)
[2017-03-25] MEDS ORDERED: MAGNESIUM HYDROX 2400MG/30ML ORAL SUSPENSION 30 ML CUP PO PRN (14:28)
[2017-03-25] MEDS ORDERED: P-EPHED 60MG/TRIPROLIDI 2.5MG TABLET PO PRN (14:28)
[2017-03-25] MEDS ORDERED: diphenhydrAMINE HCL 50 MG CAPSULE PO PRN (14:28)
[2017-03-25] MEDS ORDERED: IBUPROFEN 400 MG TABLET (FP) PO PRN (14:28)
[2017-03-25] MEDS ORDERED: MAG HYDROX/AL HYDROX/SIMETH 30 ML UNIT-DOSE CUP PO PRN (14:28)
[2017-03-25] MEDS ORDERED: NICOTINE POLACRILEX 2 MG GUM BC PRN (14:28)
[2017-03-25] MEDS ORDERED: chlordiazePOXIDE HCL 25 MG CAPSULE PO ONE (14:28)
[2017-03-25] MEDS ORDERED: ACETAMINOPHEN 325 MG TABLET (FP) PO PRN (14:28)
[2017-03-25] MEDS ORDERED: MENTHOL/PHENOL 1 EACH UD MM PRN (14:28)
[2017-03-25] MEDS ORDERED: chlordiazePOXIDE HCL 25 MG CAPSULE PO PRN (14:28)
[2017-03-25] MEDS ORDERED: hydrOXYzine PAMOATE 50 MG CAPSULE (FP) PO PRN (14:28)
[2017-03-25] MEDS ORDERED: guaiFENesin/D-METHORPHAN HB 10 ML UNIT-DOSE CUPS PO PRN (14:28)
[2017-03-25] MEDS ORDERED: NICOTINE 21 MG/24 HOURS TOPICAL PATCH TD SCH (14:30)
[2017-03-25] MEDS: chlordiazePOXIDE HCL 25 MG CAPSULE PO SCH ×2 (17:37→22:43)
[2017-03-25 21:48] LABS: URINE APPEARANCE CLEAR; URINE BILIRUBIN NEGATIVE (NEGATIVE); URINE BLOOD NEGATIVE (NEGATIVE); URINE COLOR YELLOW; URINE GLUCOSE (UA) NEGATIVE (NEGATIVE); URINE KETONE NEGATIVE (NEGATIVE); URINE NITRITE NEGATIVE (NEGATIVE); URINE PROTEIN NEGATIVE (NEGATIVE); URINE UROBILINOGEN NEGATIVE mg/dL (0.2-1.0)
[2017-03-25] MEDS ORDERED: THIAMINE HCL 100 MG TABLET (FP) PO SCH (22:00)
[2017-03-26] MEDS: chlordiazePOXIDE HCL 25 MG CAPSULE PO SCH (06:09)
[2017-03-26] MEDS ORDERED: ALBUTEROL SO4 18 GM HFA INHALER IH PRN (09:26)
--- NOTE | 2017-03-26 09:37 | PN ---
S CIWA - CIWA Score Nausea/Vomitin Muscle Tremors: 3 Anxiety: 3 Agitation: 3 Paroxysmal Sweats: 1-Minimal Palms Moist Orientation: 0-Oriented Tacttile Disturbances: 1-Very Mild Itch/Numbness Auditory Disturbances: 1-Very Mild Visual Disturbances: 1-Very Mild Sensitivity Headache: 2-Mild CIWA-Ar Total Score: 18 BHS Progress Note (SOAP) Subjective: ALERT,IRRITABLE,ANXIOUS,INTERRUPTED SLEEP,TREMOR,PAIN IN THE BODY Objective: 03/26/17 09:33 Vital Signs Temperature 98.4 F 03/26/17 06:41 Pulse Rate 54 L 03/26/17 06:41 Respiratory Rate 16 03/26/17 06:41 Blood Pressure 112/66 03/26/17 06:41 O2 Sat by Pulse Oximetry (%) EKG SINUS BRADYCARDIA , INVERTED T IN 3 NO CHEST PAIN,NO SOB,NO DIZZINESS Assessment: 03/26/17 09:37 WITHDRAWAL SYMPTOM Plan: CONTINUE DETOX
--- NOTE | 2017-03-26 09:44 | PN ---
[facility] Progress Note Note: PATIENT DID NOT WANT TO COMPLETE TREATMENT ,DID NOT WANT TO GIVE ANY REASON, SEEN BY COUNSELOR, WALKED OFF UNIT AMA,REFUSED TO SIGN
--- NOTE | 2017-03-26 09:50 | DS ---
[facility] Detox Discharge Summary Admission Date: 03/25/17 Discharge Date: 03/26/17 - History Present History: Alcohol Dependence, Cocaine Dependence Additional Comments: PATIENT DID NOT WANT TO COMPLETE TREATMENT,SEEN BY COUNSELOR,DID NOT GIVE ANY REASON, WALKED OFF THE UNIT AMA,REFUSED TO SIGN,SECURITY NOTIFIED Pertinent Past History: ASTHMA HYPERTENSION GERD - Physical Exam Results Vital Signs: Vital Signs Temperature 98.4 F 03/26/17 06:41 Pulse Rate 54 L 03/26/17 06:41 Respiratory Rate 16 03/26/17 06:41 Blood Pressure 112/66 03/26/17 06:41 O2 Sat by Pulse Oximetry (%) Pertinent Admission Physical Exam Findings: WITHDRAWAL SYMPTOM - Medication Discharge Medications: Ambulatory Orders Esomeprazole Mag Trihydrate [Nexium] 40 mg PO DAILY 02/16/14 Salmeterol/Fluticasone [Advair 250Mcg/50Mcg -] 1 inh PO BID 06/04/14 Albuterol Sulfate Inhaler - [Ventolin HFA Inhaler -] 2 inh PO Q4H PRN #1 inh Budesonide/Formeterol Fumarate [SYMBICORT 80/4.5mcg -] 2 puff IH BID #1 inhaler 01/11/17 Lisinopril [Prinivil] 10 mg PO DAILY@0600 #30 tablet 01/11/17 Pantoprazole Sodium [Protonix -] 40 mg PO DAILY #30 tab 01/11/17 Sumatriptan Succinate [Imitrex -] 50 mg PO DAILY PRN #10 tab 01/11/17 - Diagnosis (1) Alcohol dependence with uncomplicated withdrawal Current Visit: Yes Status: Acute (2) Cocaine dependence Current Visit: Yes Status: Acute Qualifiers: Substance use status: uncomplicated Qualified Code(s): F14.20 - Cocaine dependence, uncomplicated; F14.20 - Cocaine dependence, uncomplicated; F14.20 - Cocaine dependence, uncomplicated (3) Asthma Current Visit: Yes Status: Chronic Qualifiers: Asthma severity: mild intermittent Asthma complication type: uncomplicated Qualified Code(s): J45.20 - Mild intermittent asthma, uncomplicated; J45.20 - Mild intermittent asthma, uncomplicated; J45.20 - Mild intermittent asthma, uncomplicated (4) GERD (gastroesophageal reflux disease) Current Visit: Yes Status: Chronic Qualifiers: Esophagitis presence: without esophagitis Qualified Code(s): K21.9 - Gastro-esophageal reflux disease without esophagitis; K21.9 - Gastro-esophageal reflux disease without esophagitis; K21.9 - Gastro-esophageal reflux disease without esophagitis (5) Nicotine dependence Current Visit: Yes Status: Chronic Qualifiers: Nicotine product type: cigarettes Substance use status: uncomplicated Qualified Code(s): F17.210 - Nicotine dependence, cigarettes, uncomplicated ; F17.210 - Nicotine dependence, cigarettes, uncomplicated (6) Bipolar disorder Current Visit: No Status: Acute (7) Low back pain Current Visit: No Status: Acute - AMA Did Patient Leave Against Medical Advice: Yes
[2017-03-26 09:52] VITALS: BP 138/92; PULSE 63; TEMP 98.1
[2017-03-26] MEDS ORDERED: PANTOPRAZOLE 40 MG TABLET (FP) PO SCH (10:00)
[2017-03-26] MEDS ORDERED: PRENATAL VITAMINS W/ FOLIC ACID TABLET (FP) PO SCH (10:00)
[2017-03-26] MEDS ORDERED: BUDESONIDE/FORMETEROL FUMARATE 80/4.5 mcg INHALER IH SCH (10:00)
[2017-03-26 10:44] LABS: MCH 29.6 pg (25.7-33.7); MCHC 32.6 g/dl (32.0-35.9); MEAN CELL VOLUME 90.9 fl (80-96); MEAN PLT VOLUME 8.1 fl (7.5-11.1); PLATELET COUNT 240 K/MM3 (134-434); RDW 14.2 % (11.9-15.9); WHITE BLOOD COUNT 3.9 K/mm3 (4.0-10.0)
[2017-03-26 10:46] LABS: ALBUMIN 3.3 g/dl (3.4-5.0); CALCIUM 9.2 mg/dL (8.5-10.1)
[2017-03-26 10:52] LABS: ALK PHOS 43 U/L (45-117); ANION GAP 5 (8-16); BILIRUBIN,TOTAL 0.3 mg/dL (0.2-1.0); CO2 26 mmol/L (21-32); CREATININE 1.1 mg/dL (0.7-1.3); GLUCOSE,RANDOM 93 mg/dL (74-106); SGOT/AST 11 U/L (15-37); SGPT/ALT 16 U/L (12-78); TOT PROT 5.9 g/dl (6.4-8.2)
--- NOTE | 2017-03-26 12:45 | EKG ---
Test Reason : Blood Pressure : / mmHG Vent. Rate : 059 BPM Atrial Rate : 059 BPM P-R Int : 176 ms QRS Dur : 078 ms QT Int : 394 ms P-R-T Axes : 050 011 019 degrees QTc Int : 390 ms SINUS BRADYCARDIA NONSPECIFIC ST ABNORMALITY ABNORMAL ECG WHEN COMPARED WITH ECG OF 26-DEC-2016 20:15, NO SIGNIFICANT CHANGE WAS FOUND Confirmed by MARISELA DUPREE MD ([id number]) on 03/26/2017 12:44:47 PM Referred By: Ana Gar Confirmed By:MARISELA DUPREE MD
[2017-03-26 15:10] LABS: URINE LEUK ESTERASE Negative (NEGATIVE)
[2017-03-26] MEDS ORDERED: chlordiazePOXIDE HCL 25 MG CAPSULE PO SCH (17:00)
[2017-03-27] MEDS ORDERED: LISINOPRIL 10 MG TABLET (FP) PO SCH (06:00)
[2017-03-27] MEDS ORDERED: chlordiazePOXIDE 5 MG CAPSULE PO SCH (17:00)
[2017-03-28] MEDS ORDERED: chlordiazePOXIDE HCL 10 MG CAPSULE PO SCH (17:00)
== END 2017-03-26 09:25 | disposition left against medical advice (07) | DRG 770 ==
LOC: YASAS 10:46 → Y6N 13:54
PROVIDERS: ADMIT Internal Medicine; ATTEND Internal Medicine
PROC: HZ2ZZZZ Detoxification Services for Substance Abuse Treatment (ICD-10-PCS; principal; 2017-03-25)
DX: F10.230 Alcohol dependence with withdrawal, uncomplicated (principal); F14.20 Cocaine dependence, uncomplicated; F17.210 Nicotine dependence, cigarettes, uncomplicated; F31.9 Bipolar disorder, unspecified; R00.1 Bradycardia, unspecified; J45.20 Mild intermittent asthma, uncomplicated; K21.9 Gastro-esophageal reflux disease without esophagitis; M54.5 Low back pain
CPT/HCPCS: 36415; 80053; 81003; 85027; 86593; 93005; 93010

== ENCOUNTER 2017-10-22 09:25 | Inpatient (IN) | payer OTHER ==
[2017-10-22 10:07] VITALS: BMI 25.2
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
[2017-10-22] MEDS ORDERED: chlordiazePOXIDE HCL 25 MG CAPSULE PO PRN (13:39)
[2017-10-22] MEDS ORDERED: ACETAMINOPHEN 325 MG TABLET (FP) PO PRN (13:39)
[2017-10-22] MEDS ORDERED: NICOTINE POLACRILEX 2 MG GUM BC PRN (13:39)
[2017-10-22] MEDS ORDERED: LOPERAMIDE HCL 2 MG CAPSULE PO PRN (13:39)
[2017-10-22] MEDS ORDERED: MAGNESIUM CITRATE 300 ML BOTTLE PO PRN (13:39)
[2017-10-22] MEDS ORDERED: MENTHOL/PHENOL 1 EACH UD MM PRN (13:39)
[2017-10-22] MEDS ORDERED: P-EPHED 60MG/TRIPROLIDI 2.5MG TABLET PO PRN (13:39)
[2017-10-22] MEDS ORDERED: IBUPROFEN 400 MG TABLET (FP) PO PRN (13:39)
[2017-10-22] MEDS ORDERED: guaiFENesin/D-METHORPHAN HB 10 ML UNIT-DOSE CUPS PO PRN (13:39)
[2017-10-22] MEDS ORDERED: MAG HYDROX/AL HYDROX/SIMETH 30 ML UNIT-DOSE CUP PO PRN (13:39)
[2017-10-22] MEDS ORDERED: MAGNESIUM HYDROX 2400MG/30ML ORAL SUSPENSION 30 ML CUP PO PRN (13:39)
[2017-10-22] MEDS ORDERED: SUMAtriptan SUCCINATE 50 MG TABLET PO PRN (14:30)
[2017-10-22] MEDS ORDERED: ALBUTEROL SO4 18 GM HFA INHALER IH PRN (14:30)
[2017-10-22] MEDS: NICOTINE 14 MG/24 HOURS TOPICAL PATCH TD SCH (14:38)
[2017-10-22] MEDS ORDERED: chlordiazePOXIDE HCL 25 MG CAPSULE PO ONE (14:45)
[2017-10-22 16:25] LABS: HEMATOCRIT 43.4 % (35.4-49); HEMOGLOBIN 14.9 GM/dL (11.7-16.9); MCH 31.5 pg (25.7-33.7); MCHC 34.2 g/dl (32.0-35.9); MEAN PLT VOLUME 9.5 fl (7.5-11.1); PLATELET COUNT 292 K/MM3 (134-434); RBC 4.71 M/mm3 (4.00-5.60); RDW 14.1 % (11.9-15.9); WHITE BLOOD COUNT 4.8 K/mm3 (4.0-10.0)
[2017-10-22 16:33] LABS: URINE APPEARANCE CLEAR; URINE BILIRUBIN NEGATIVE (<2.0 mg/dL); URINE COLOR DKYELLOW; URINE GLUCOSE (UA) NEGATIVE (NEGATIVE); URINE KETONE 1+ (NEGATIVE); URINE LEUK ESTERASE NEGATIVE (NEGATIVE); URINE NITRITE NEGATIVE (NEGATIVE)
[2017-10-22 16:37] LABS: URINE PROTEIN 1+ (NEGATIVE)
[2017-10-22 16:55] LABS: ALK PHOS 51 U/L (45-117); ANION GAP 8 (8-16); BILIRUBIN,TOTAL 0.7 mg/dL (0.2-1.0); BLOOD UREA NITROGEN 14 mg/dL (7-18); CALCIUM 8.7 mg/dL (8.5-10.1); CHLORIDE 108 mmol/L (98-107); CO2 27 mmol/L (21-32); CREATININE 1.3 mg/dL (0.7-1.3); GLUCOSE,RANDOM 105 mg/dL (74-106); POTASSIUM 3.9 mmol/L (3.5-5.1); SGOT/AST 17 U/L (15-37); SGPT/ALT 17 U/L (12-78); SODIUM 143 mmol/L (136-145)
[2017-10-22 16:58] LABS: EPI CELLS RARE /HPF (FEW); URINE MUCUS MANY
[2017-10-22] MEDS: LISINOPRIL 10 MG TABLET (FP) PO SCH (17:37)
[2017-10-22] MEDS: chlordiazePOXIDE HCL 25 MG CAPSULE PO SCH ×2 (17:41→22:33)
[2017-10-22] MEDS ORDERED: MELATONIN 5 MG TABLETS PO PRN (22:00)
[2017-10-22] MEDS: BUDESONIDE/FORMETEROL FUMARATE 80/4.5 mcg INHALER IH SCH (22:32)
[2017-10-22] MEDS: THIAMINE HCL 100 MG TABLET (FP) PO SCH (22:32)
[2017-10-23] MEDS: chlordiazePOXIDE HCL 25 MG CAPSULE PO SCH ×4 (07:25→22:46)
[2017-10-23] MEDS: LISINOPRIL 10 MG TABLET (FP) PO SCH (07:25)
--- NOTE | 2017-10-23 09:55 | EKG ---
Test Reason : Blood Pressure : / mmHG Vent. Rate : 061 BPM Atrial Rate : 061 BPM P-R Int : 178 ms QRS Dur : 076 ms QT Int : 410 ms P-R-T Axes : 051 018 017 degrees QTc Int : 412 ms NORMAL SINUS RHYTHM NONSPECIFIC ST AND T WAVE ABNORMALITY Confirmed by MD Kylah, Markos ([id number]) on 10/23/2017 9:55:17 AM Referred By: Confirmed By:Markos Montero MD
[2017-10-23] MEDS: BUDESONIDE/FORMETEROL FUMARATE 80/4.5 mcg INHALER IH SCH ×2 (10:21→22:47)
[2017-10-23] MEDS: NICOTINE 14 MG/24 HOURS TOPICAL PATCH TD SCH (10:21)
[2017-10-23] MEDS: PRENATAL VITAMINS W/ FOLIC ACID TABLET (FP) PO SCH (10:21)
[2017-10-23] MEDS: LIDOCAINE 5% TOPICAL PATCH TP SCH (10:37)
[2017-10-23] MEDS: PANTOPRAZOLE 20 MG TABLET (FP) PO SCH ×2 (10:39→17:52)
--- NOTE | 2017-10-23 11:22 | PN ---
[facility] CIWA - CIWA Score Nausea/Vomitin-No Nausea/No Vomiting Muscle Tremors: 3 Anxiety: 4-Mod. Anxious/Guarded Agitation: 2 Paroxysmal Sweats: 3 Orientation: 0-Oriented Tacttile Disturbances: 2-Mild Itch/Numbness/Burn Auditory Disturbances: 2-Mild Harshness/Frighten Visual Disturbances: 2-Mild Sensitivity Headache: 0-None Present CIWA-Ar Total Score: 18 BHS Progress Note (SOAP) Subjective: Tremors, Body Aches, Fatigue, Sweating. Objective: PATIENT A & O X 3, OBSERVED AMBULATING ON UNIT. NO ACUTE DISTRESS. 10/23/17 11:20 Vital Signs Temperature 96.6 F L 10/23/17 09:55 Pulse Rate 70 10/23/17 09:55 Respiratory Rate 16 10/23/17 09:55 Blood Pressure 116/78 10/23/17 09:55 O2 Sat by Pulse Oximetry (%) Laboratory Tests 10/22/17 10/22/17 10/22/17 14:00 14:00 14:00 WBC 4.8 RBC 4.71 Hgb 14.9 Hct 43.4 MCV 92.0 MCH 31.5 MCHC 34.2 RDW 14.1 Plt Count 292 D MPV 9.5 D Sodium 143 Potassium 3.9 Chloride 108 H Carbon Dioxide 27 Anion Gap 8 BUN 14 D Creatinine 1.3 Creat Clearance w eGFR 57.53 Random Glucose 105 Calcium 8.7 Total Bilirubin 0.7 D AST 17 D ALT 17 Alkaline Phosphatase 51 Total Protein 7.0 Albumin 4.0 D Urine Color Dkyellow Urine Appearance Clear Urine pH 5.0 Ur Specific [place] 1.030 Urine Protein 1+ H Urine Glucose (UA) Negative Urine Ketones 1+ H Urine Blood Negative Urine Nitrite Negative Urine Bilirubin Negative Urine Urobilinogen 2.0 Ur Leukocyte Esterase Negative Urine WBC (Auto) 1 Urine RBC (Auto) 1 Ur Epithelial Cells Rare Urine Mucus Many LABS NOTED. HIV AB, RPR RESULTS PENDING. 10/23/17 11:21 Assessment: 10/23/17 11:20 WITHDRAWAL SYMPTOMS. Plan: CONTINUE DETOX.
[2017-10-23] MEDS: LIDOCAINE PATCH REMOVAL MC SCH (22:46)
[2017-10-23] MEDS: THIAMINE HCL 100 MG TABLET (FP) PO SCH (22:46)
[2017-10-24] MEDS: PANTOPRAZOLE 20 MG TABLET (FP) PO SCH ×2 (06:40→17:23)
[2017-10-24] MEDS: LISINOPRIL 10 MG TABLET (FP) PO SCH (06:40)
[2017-10-24] MEDS: chlordiazePOXIDE HCL 25 MG CAPSULE PO SCH ×2 (06:40→10:45)
[2017-10-24] MEDS: LIDOCAINE 5% TOPICAL PATCH TP SCH (10:41)
[2017-10-24] MEDS: NICOTINE 14 MG/24 HOURS TOPICAL PATCH TD SCH (10:44)
[2017-10-24] MEDS: PRENATAL VITAMINS W/ FOLIC ACID TABLET (FP) PO SCH (10:44)
[2017-10-24] MEDS: BUDESONIDE/FORMETEROL FUMARATE 80/4.5 mcg INHALER IH SCH ×2 (10:45→22:27)
--- NOTE | 2017-10-24 11:10 | PN ---
S CIWA - CIWA Score Nausea/Vomitin Muscle Tremors: None Anxiety: 4-Mod. Anxious/Guarded Agitation: 3 Paroxysmal Sweats: 2 Orientation: 0-Oriented Tacttile Disturbances: 1-Very Mild Itch/Numbness Auditory Disturbances: 0-None Visual Disturbances: 2-Mild Sensitivity Headache: 0-None Present CIWA-Ar Total Score: 15 BHS Progress Note (SOAP) Subjective: Sweating, Anxious, Fatigue, Stomach Cramping. Objective: PATIENT A & O X 3, OBSERVED AMBULATING ON UNIT. NO ACUTE DISTRESS. 10/24/17 11:12 Vital Signs Temperature 96.8 F L 10/24/17 09:04 Pulse Rate 67 10/24/17 09:04 Respiratory Rate 18 10/24/17 09:04 Blood Pressure 114/77 10/24/17 09:04 O2 Sat by Pulse Oximetry (%) Laboratory Tests 10/22/17 10/22/17 10/22/17 14:00 14:00 14:00 WBC 4.8 RBC 4.71 Hgb 14.9 Hct 43.4 MCV 92.0 MCH 31.5 MCHC 34.2 RDW 14.1 Plt Count 292 D MPV 9.5 D Sodium 143 Potassium 3.9 Chloride 108 H Carbon Dioxide 27 Anion Gap 8 BUN 14 D Creatinine 1.3 Creat Clearance w eGFR 57.53 Random Glucose 105 Calcium 8.7 Total Bilirubin 0.7 D AST 17 D ALT 17 Alkaline Phosphatase 51 Total Protein 7.0 Albumin 4.0 D Urine Color Urine Appearance Urine pH Ur Specific [place] Urine Protein Urine Glucose (UA) Urine Ketones Urine Blood Urine Nitrite Urine Bilirubin Urine Urobilinogen Ur Leukocyte Esterase Urine WBC (Auto) Urine RBC (Auto) Ur Epithelial Cells Urine Mucus RPR Titer HIV 1&2 Antibody Screen Negative HIV P24 Antigen Negative 10/22/17 10/22/17 14:00 14:00 WBC RBC Hgb Hct MCV MCH MCHC RDW Plt Count MPV Sodium Potassium Chloride Carbon Dioxide Anion Gap BUN Creatinine Creat Clearance w eGFR Random Glucose Calcium Total Bilirubin AST ALT Alkaline Phosphatase Total Protein Albumin Urine Color Dkyellow Urine Appearance Clear Urine pH 5.0 Ur Specific [place] 1.030 Urine Protein 1+ H Urine Glucose (UA) Negative Urine Ketones 1+ H Urine Blood Negative Urine Nitrite Negative Urine Bilirubin Negative Urine Urobilinogen 2.0 Ur Leukocyte Esterase Negative Urine WBC (Auto) 1 Urine RBC (Auto) 1 Ur Epithelial Cells Rare Urine Mucus Many RPR Titer Nonreactive HIV 1&2 Antibody Screen HIV P24 Antigen LABS NOTED. Assessment: 10/24/17 11:12 WITHDRAWAL SYMPTOMS. Plan: CONTINUE DETOX. INCREASE DAILY PO FLUID INTAKE.
[2017-10-24] MEDS: chlordiazePOXIDE 5 MG CAPSULE PO SCH ×2 (17:23→22:27)
[2017-10-24] MEDS: THIAMINE HCL 100 MG TABLET (FP) PO SCH (22:27)
[2017-10-24] MEDS: LIDOCAINE PATCH REMOVAL MC SCH (22:27)
[2017-10-25] MEDS: LISINOPRIL 10 MG TABLET (FP) PO SCH (06:18)
[2017-10-25] MEDS: PANTOPRAZOLE 20 MG TABLET (FP) PO SCH (06:18)
[2017-10-25] MEDS: chlordiazePOXIDE 5 MG CAPSULE PO SCH ×2 (06:45→10:33)
[2017-10-25] MEDS: BUDESONIDE/FORMETEROL FUMARATE 80/4.5 mcg INHALER IH SCH (10:33)
[2017-10-25] MEDS: NICOTINE 14 MG/24 HOURS TOPICAL PATCH TD SCH (10:33)
[2017-10-25] MEDS: PRENATAL VITAMINS W/ FOLIC ACID TABLET (FP) PO SCH (10:33)
[2017-10-25] MEDS: LIDOCAINE 5% TOPICAL PATCH TP SCH (10:33)
--- NOTE | 2017-10-25 10:57 | PN ---
BHS Progress Note (SOAP) Subjective: Anxious, Sweating. Objective: PATIENT A & O X 3, OBSERVED AMBULATING ON UNIT. NO ACUTE DISTRESS. 10/25/17 10:55 Vital Signs Temperature 97.4 F L 10/25/17 09:00 Pulse Rate 70 10/25/17 09:00 Respiratory Rate 18 10/25/17 09:00 Blood Pressure 128/83 10/25/17 09:00 O2 Sat by Pulse Oximetry (%) Laboratory Tests 10/22/17 10/22/17 10/22/17 14:00 14:00 14:00 WBC 4.8 RBC 4.71 Hgb 14.9 Hct 43.4 MCV 92.0 MCH 31.5 MCHC 34.2 RDW 14.1 Plt Count 292 D MPV 9.5 D Sodium 143 Potassium 3.9 Chloride 108 H Carbon Dioxide 27 Anion Gap 8 BUN 14 D Creatinine 1.3 Creat Clearance w eGFR 57.53 Random Glucose 105 Calcium 8.7 Total Bilirubin 0.7 D AST 17 D ALT 17 Alkaline Phosphatase 51 Total Protein 7.0 Albumin 4.0 D Urine Color Urine Appearance Urine pH Ur Specific [place] Urine Protein Urine Glucose (UA) Urine Ketones Urine Blood Urine Nitrite Urine Bilirubin Urine Urobilinogen Ur Leukocyte Esterase Urine WBC (Auto) Urine RBC (Auto) Ur Epithelial Cells Urine Mucus RPR Titer HIV 1&2 Antibody Screen Negative HIV P24 Antigen Negative 10/22/17 10/22/17 14:00 14:00 WBC RBC Hgb Hct MCV MCH MCHC RDW Plt Count MPV Sodium Potassium Chloride Carbon Dioxide Anion Gap BUN Creatinine Creat Clearance w eGFR Random Glucose Calcium Total Bilirubin AST ALT Alkaline Phosphatase Total Protein Albumin Urine Color Dkyellow Urine Appearance Clear Urine pH 5.0 Ur Specific [place] 1.030 Urine Protein 1+ H Urine Glucose (UA) Negative Urine Ketones 1+ H Urine Blood Negative Urine Nitrite Negative Urine Bilirubin Negative Urine Urobilinogen 2.0 Ur Leukocyte Esterase Negative Urine WBC (Auto) 1 Urine RBC (Auto) 1 Ur Epithelial Cells Rare Urine Mucus Many RPR Titer Nonreactive HIV 1&2 Antibody Screen HIV P24 Antigen LABS NOTED. Assessment: 10/25/17 10:56 WITHDRAWAL SYMPTOMS. Plan: CONTINUE DETOX.
[2017-10-25 13:17] VITALS: BP 120/84; PULSE 82; TEMP 97.6
--- NOTE | 2017-10-25 13:32 | DS ---
[facility] Detox Discharge Summary Admission Date: 10/22/17 Discharge Date: 10/25/17 - History Present History: Alcohol Dependence Additional Comments: PATIENT GOING TO [facility] ([facility] FOR AFTERCARE. PATIENT REPORTS THAT CURRENT DETOX SYMPTOMS ARE MINIMAL IN DEGREE AND THAT HE FEELS WELL OVERALL AT TIME OF DISCHARGE FROM DETOX UNIT. PATIENT WAS DISCHARGED FROM DETOX UNIT IN STABLE MEDICAL CONDITION. Pertinent Past History: Asthma, History of Migraines, GERD, Nicotine Dependence Low Back Pain, HTN, Bipolar Disorder. - Physical Exam Results Vital Signs: Vital Signs Temperature 97.6 F 10/25/17 13:16 Pulse Rate 82 10/25/17 13:16 Respiratory Rate 18 10/25/17 13:16 Blood Pressure 120/84 10/25/17 13:16 O2 Sat by Pulse Oximetry (%) Pertinent Admission Physical Exam Findings: WITHDRWAL SYMPTOMS. Vital Signs Temperature 97.6 F 10/25/17 13:16 Pulse Rate 82 10/25/17 13:16 Respiratory Rate 18 10/25/17 13:16 Blood Pressure 120/84 10/25/17 13:16 O2 Sat by Pulse Oximetry (%) Laboratory Tests 10/22/17 10/22/17 10/22/17 14:00 14:00 14:00 WBC 4.8 RBC 4.71 Hgb 14.9 Hct 43.4 MCV 92.0 MCH 31.5 MCHC 34.2 RDW 14.1 Plt Count 292 D MPV 9.5 D Sodium 143 Potassium 3.9 Chloride 108 H Carbon Dioxide 27 Anion Gap 8 BUN 14 D Creatinine 1.3 Creat Clearance w eGFR 57.53 Random Glucose 105 Calcium 8.7 Total Bilirubin 0.7 D AST 17 D ALT 17 Alkaline Phosphatase 51 Total Protein 7.0 Albumin 4.0 D Urine Color Urine Appearance Urine pH Ur Specific [place] Urine Protein Urine Glucose (UA) Urine Ketones Urine Blood Urine Nitrite Urine Bilirubin Urine Urobilinogen Ur Leukocyte Esterase Urine WBC (Auto) Urine RBC (Auto) Ur Epithelial Cells Urine Mucus RPR Titer HIV 1&2 Antibody Screen Negative HIV P24 Antigen Negative 10/22/17 10/22/17 14:00 14:00 WBC RBC Hgb Hct MCV MCH MCHC RDW Plt Count MPV Sodium Potassium Chloride Carbon Dioxide Anion Gap BUN Creatinine Creat Clearance w eGFR Random Glucose Calcium Total Bilirubin AST ALT Alkaline Phosphatase Total Protein Albumin Urine Color Dkyellow Urine Appearance Clear Urine pH 5.0 Ur Specific [place] 1.030 Urine Protein 1+ H Urine Glucose (UA) Negative Urine Ketones 1+ H Urine Blood Negative Urine Nitrite Negative Urine Bilirubin Negative Urine Urobilinogen 2.0 Ur Leukocyte Esterase Negative Urine WBC (Auto) 1 Urine RBC (Auto) 1 Ur Epithelial Cells Rare Urine Mucus Many RPR Titer Nonreactive HIV 1&2 Antibody Screen HIV P24 Antigen LABS NOTED. - Treatment Hospital Course: Detox Protocol Followed, Detoxed Safely, Responded well, Discharged Condition Good, Rehab Referral Accepted Patient has Accepted a Rehab Referral to: [facility] ([facility] . - Medication Discharge Medications: Ambulatory Orders Esomeprazole Mag Trihydrate [Nexium] 40 mg PO DAILY 02/16/14 Salmeterol/Fluticasone [Advair 250Mcg/50Mcg -] 1 inh PO BID 06/04/14 Albuterol Sulfate Inhaler - [Ventolin HFA Inhaler -] 2 inh PO Q4H PRN #1 inh Lisinopril [Prinivil] 10 mg PO DAILY@0600 #30 tablet 01/11/17 Sumatriptan Succinate [Imitrex -] 50 mg PO DAILY PRN #10 tab 01/11/17 Amlodipine Besylate 5 mg PO DAILY #30 tablet 10/25/17 Fluticasone/Salmeterol [Advair 250-50 Diskus] 1 each IH BID #1 blst.w.dev - Diagnosis (1) Alcohol dependence with uncomplicated withdrawal Current Visit: Yes Status: Acute (2) Cocaine dependence Current Visit: Yes Status: Acute Qualifiers: Substance use status: uncomplicated Qualified Code(s): F14.20 - Cocaine dependence, uncomplicated (3) Nicotine dependence Current Visit: Yes Status: Acute Qualifiers: Nicotine product type: cigarettes Substance use status: in withdrawal Qualified Code(s): F17.213 - Nicotine dependence, cigarettes, with withdrawal (4) Asthma Current Visit: Yes Status: Chronic Qualifiers: Asthma severity: moderate Asthma persistence: persistent Asthma complication type: uncomplicated Qualified Code(s): J45.40 - Moderate persistent asthma, uncomplicated (5) GERD (gastroesophageal reflux disease) Current Visit: Yes Status: Chronic Qualifiers: Esophagitis presence: esophagitis presence not specified Qualified Code(s) : K21.9 - Gastro-esophageal reflux disease without esophagitis (6) Hx of migraine headaches Current Visit: Yes Status: Chronic (7) Low back pain Current Visit: Yes Status: Chronic Qualifiers: Chronicity: chronic Back pain laterality: unspecified Sciatica presence: unspecified whether sciatica present Qualified Code(s): M54.5 - Low back pain ; G89.29 - Other chronic pain; G89.29 - Other chronic pain - AMA Did Patient Leave Against Medical Advice: No
[2017-10-25] MEDS ORDERED: chlordiazePOXIDE HCL 10 MG CAPSULE PO SCH (17:00)
== END 2017-10-25 18:05 | disposition other institution (70) | DRG 774 ==
LOC: YASAS 09:25 → Y3N 13:54
PROVIDERS: ADMIT Internal Medicine; ATTEND Internal Medicine
PROC: HZ2ZZZZ Detoxification Services for Substance Abuse Treatment (ICD-10-PCS; principal; 2017-10-22)
DX: F10.230 Alcohol dependence with withdrawal, uncomplicated (principal); F14.20 Cocaine dependence, uncomplicated; F17.210 Nicotine dependence, cigarettes, uncomplicated; F31.9 Bipolar disorder, unspecified; I10 Essential (primary) hypertension; J45.909 Unspecified asthma, uncomplicated; K21.9 Gastro-esophageal reflux disease without esophagitis; M54.5 Low back pain; Z86.69 Personal history of other diseases of the nervous system and sense organs
CPT/HCPCS: 36415; 80053; 81003; 81015; 85027; 86593; 87389; 93005; 93010

== ENCOUNTER 2017-10-25 18:15 | Inpatient (IN) | payer OTHER ==
--- NOTE | 2017-10-25 13:27 | HP ---
JORGE RAMIREZ Rehab Assess/Revision - Admission History Admitted to Rehab from: [facility] Date of Admission to Rehab: 10/25/2017 - Vital signs Vital Signs: NOTED; STABLE. - Findings Detox History & Physical reviewed: Yes Concur with findings: Yes Comments/Additional Findings: PATIENT'S MEDICAL / MEDICATION HISTORY REVIEWED PRIOR TO DISCHARGE FROM DETOX UNIT. PER PHARMACIST FROM PATIENT'S PHARMACY ( [facility], [place], [place] PATIENT PRESCRIBED AMLODIPINE, 5 MG PO DAILY OUTPATIENT RATHER THAN LISINOPRIL. AMLODIPINE, 5 MG PO DAILY ORDERED FOR PATIENT WHILE ADMITTED FOR REHAB. PATIENT WAS DISCHARGED FROM DETOX UNIT TO BE TAKEN TO REHAB UNIT IN STABLE MEDICAL CONDITION. Inpatient Rehab Admission - Initial Determination Are CD services needed?: Yes Free of communicable disease: Yes Not in need of hospitalization: Yes - Rehab Admission Criteria Previous failed treatment: Yes Comorbidities: Yes Patient is meeting Inpatient Rehab admission criteria:: Yes
[~2017-10-25 18:15] MED LIST: ALBUTEROL SO4 18 GM HFA INHALER IH PRN; IBUPROFEN 400 MG TABLET (FP) PO PRN; LOPERAMIDE HCL 2 MG CAPSULE PO PRN; MAG HYDROX/AL HYDROX/SIMETH 30 ML UNIT-DOSE CUP PO PRN; MAGNESIUM CITRATE 300 ML BOTTLE PO PRN; MAGNESIUM HYDROX 2400MG/30ML ORAL SUSPENSION 30 ML CUP PO PRN; MENTHOL/PHENOL 1 EACH UD MM PRN; NICOTINE POLACRILEX 2 MG GUM BUC PRN; P-EPHED 60MG/TRIPROLIDI 2.5MG TABLET PO PRN; guaiFENesin/D-METHORPHAN HB 10 ML UNIT-DOSE CUPS PO PRN
[2017-10-25] MEDS: PANTOPRAZOLE 20 MG TABLET (FP) PO SCH (20:00)
[2017-10-25] MEDS: THIAMINE HCL 100 MG TABLET (FP) PO SCH (21:56)
[2017-10-25] MEDS: BUDESONIDE/FORMETEROL FUMARATE 80/4.5 mcg INHALER IH SCH (21:56)
[2017-10-25] MEDS ORDERED: MELATONIN 5 MG TABLETS PO PRN (22:00)
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
[2017-10-26] MEDS: PANTOPRAZOLE 20 MG TABLET (FP) PO SCH ×2 (06:46→17:47)
[2017-10-26] MEDS: PRENATAL VITAMINS W/ FOLIC ACID TABLET (FP) PO SCH (10:07)
[2017-10-26] MEDS: NICOTINE 14 MG/24 HOURS TOPICAL PATCH TD SCH (10:07)
[2017-10-26] MEDS: amLODIPine BESYLATE 5 MG TABLET (FP) PO SCH (10:07)
[2017-10-26] MEDS: BUDESONIDE/FORMETEROL FUMARATE 80/4.5 mcg INHALER IH SCH ×2 (10:07→21:39)
[2017-10-26] MEDS: LIDOCAINE 5% TOPICAL PATCH TP SCH (11:32)
[2017-10-26] MEDS: CYCLOBENZAPRINE HCL 10 MG TABLET (FP) PO PRN (11:32)
[2017-10-26] MEDS: LIDOCAINE PATCH REMOVAL MC SCH (21:38)
[2017-10-26] MEDS: diphenhydrAMINE HCL 50 MG CAPSULE PO PRN (21:39)
[2017-10-26] MEDS: THIAMINE HCL 100 MG TABLET (FP) PO SCH (21:39)
[2017-10-27] MEDS: PANTOPRAZOLE 20 MG TABLET (FP) PO SCH ×2 (06:37→16:33)
[2017-10-27] MEDS: LIDOCAINE 5% TOPICAL PATCH TP SCH (10:20)
[2017-10-27] MEDS: PRENATAL VITAMINS W/ FOLIC ACID TABLET (FP) PO SCH (10:35)
[2017-10-27] MEDS: amLODIPine BESYLATE 5 MG TABLET (FP) PO SCH (10:35)
[2017-10-27] MEDS: NICOTINE 14 MG/24 HOURS TOPICAL PATCH TD SCH (10:35)
[2017-10-27] MEDS: BUDESONIDE/FORMETEROL FUMARATE 80/4.5 mcg INHALER IH SCH ×2 (10:35→22:46)
[2017-10-27] MEDS: CYCLOBENZAPRINE HCL 10 MG TABLET (FP) PO PRN (16:31)
[2017-10-27] MEDS: ACETAMINOPHEN 325 MG TABLET (FP) PO PRN (16:31)
[2017-10-27] MEDS: LIDOCAINE PATCH REMOVAL MC SCH (22:45)
[2017-10-27] MEDS: THIAMINE HCL 100 MG TABLET (FP) PO SCH (22:46)
[2017-10-28] MEDS: PANTOPRAZOLE 20 MG TABLET (FP) PO SCH ×2 (06:56→17:17)
[2017-10-28] MEDS: PRENATAL VITAMINS W/ FOLIC ACID TABLET (FP) PO SCH (10:07)
[2017-10-28] MEDS: BUDESONIDE/FORMETEROL FUMARATE 80/4.5 mcg INHALER IH SCH ×2 (10:07→21:55)
[2017-10-28] MEDS: LIDOCAINE 5% TOPICAL PATCH TP SCH (10:07)
[2017-10-28] MEDS: NICOTINE 14 MG/24 HOURS TOPICAL PATCH TD SCH (10:07)
[2017-10-28] MEDS: amLODIPine BESYLATE 5 MG TABLET (FP) PO SCH (10:07)
[2017-10-28] MEDS: THIAMINE HCL 100 MG TABLET (FP) PO SCH (21:55)
[2017-10-28] MEDS: LIDOCAINE PATCH REMOVAL MC SCH (21:55)
[2017-10-29] MEDS: PANTOPRAZOLE 20 MG TABLET (FP) PO SCH ×2 (06:13→17:35)
[2017-10-29] MEDS: ACETAMINOPHEN 325 MG TABLET (FP) PO PRN (08:22)
[2017-10-29] MEDS: LIDOCAINE 5% TOPICAL PATCH TP SCH (10:23)
[2017-10-29] MEDS: PRENATAL VITAMINS W/ FOLIC ACID TABLET (FP) PO SCH (10:23)
[2017-10-29] MEDS: NICOTINE 14 MG/24 HOURS TOPICAL PATCH TD SCH (10:23)
[2017-10-29] MEDS: amLODIPine BESYLATE 5 MG TABLET (FP) PO SCH (10:23)
[2017-10-29] MEDS: BUDESONIDE/FORMETEROL FUMARATE 80/4.5 mcg INHALER IH SCH ×2 (10:24→21:39)
[2017-10-29] MEDS: SUMAtriptan SUCCINATE 50 MG TABLET PO PRN (12:24)
[2017-10-29] MEDS: diphenhydrAMINE HCL 50 MG CAPSULE PO PRN (21:38)
[2017-10-29] MEDS: THIAMINE HCL 100 MG TABLET (FP) PO SCH (21:39)
[2017-10-29] MEDS: LIDOCAINE PATCH REMOVAL MC SCH (21:39)
[2017-10-30] MEDS: PANTOPRAZOLE 20 MG TABLET (FP) PO SCH ×2 (06:38→17:50)
[2017-10-30] MEDS: SUMAtriptan SUCCINATE 50 MG TABLET PO PRN (06:39)
[2017-10-30] MEDS: NICOTINE 14 MG/24 HOURS TOPICAL PATCH TD SCH (10:06)
[2017-10-30] MEDS: LIDOCAINE 5% TOPICAL PATCH TP SCH (10:06)
[2017-10-30] MEDS: PRENATAL VITAMINS W/ FOLIC ACID TABLET (FP) PO SCH (10:06)
[2017-10-30] MEDS: amLODIPine BESYLATE 5 MG TABLET (FP) PO SCH (10:07)
[2017-10-30] MEDS: BUDESONIDE/FORMETEROL FUMARATE 80/4.5 mcg INHALER IH SCH ×2 (10:07→21:22)
[2017-10-30] MEDS: LIDOCAINE PATCH REMOVAL MC SCH (21:21)
[2017-10-30] MEDS: THIAMINE HCL 100 MG TABLET (FP) PO SCH (21:22)
[2017-10-30] MEDS: ACETAMINOPHEN 325 MG TABLET (FP) PO PRN (21:23)
[2017-10-30] MEDS: diphenhydrAMINE HCL 50 MG CAPSULE PO PRN (21:23)
[2017-10-31] MEDS: PANTOPRAZOLE 20 MG TABLET (FP) PO SCH ×2 (06:06→17:11)
[2017-10-31] MEDS: LISINOPRIL 10 MG TABLET (FP) PO SCH (06:06)
[2017-10-31] MEDS: BUDESONIDE/FORMETEROL FUMARATE 80/4.5 mcg INHALER IH SCH ×2 (10:29→21:38)
[2017-10-31] MEDS: NICOTINE 14 MG/24 HOURS TOPICAL PATCH TD SCH (10:29)
[2017-10-31] MEDS: amLODIPine BESYLATE 5 MG TABLET (FP) PO SCH (10:29)
[2017-10-31] MEDS: PRENATAL VITAMINS W/ FOLIC ACID TABLET (FP) PO SCH (10:29)
[2017-10-31] MEDS: LIDOCAINE 5% TOPICAL PATCH TP SCH (10:29)
[2017-10-31] MEDS: THIAMINE HCL 100 MG TABLET (FP) PO SCH (21:38)
[2017-10-31] MEDS: LIDOCAINE PATCH REMOVAL MC SCH (21:38)
[2017-10-31] MEDS: diphenhydrAMINE HCL 50 MG CAPSULE PO PRN (21:38)
[2017-11-01] MEDS: PANTOPRAZOLE 20 MG TABLET (FP) PO SCH ×2 (06:36→17:36)
[2017-11-01] MEDS: LISINOPRIL 10 MG TABLET (FP) PO SCH (06:36)
[2017-11-01] MEDS: PRENATAL VITAMINS W/ FOLIC ACID TABLET (FP) PO SCH (09:58)
[2017-11-01] MEDS: amLODIPine BESYLATE 5 MG TABLET (FP) PO SCH (09:58)
[2017-11-01] MEDS: BUDESONIDE/FORMETEROL FUMARATE 80/4.5 mcg INHALER IH SCH ×2 (09:59→22:27)
[2017-11-01] MEDS: LIDOCAINE 5% TOPICAL PATCH TP SCH (09:59)
[2017-11-01] MEDS: NICOTINE 14 MG/24 HOURS TOPICAL PATCH TD SCH (09:59)
[2017-11-01] MEDS: THIAMINE HCL 100 MG TABLET (FP) PO SCH (22:26)
[2017-11-01] MEDS: LIDOCAINE PATCH REMOVAL MC SCH (22:27)
[2017-11-01] MEDS: diphenhydrAMINE HCL 50 MG CAPSULE PO PRN (22:28)
[2017-11-02] MEDS: LISINOPRIL 10 MG TABLET (FP) PO SCH (05:58)
[2017-11-02] MEDS: PANTOPRAZOLE 20 MG TABLET (FP) PO SCH ×2 (05:58→17:39)
[2017-11-02] MEDS: amLODIPine BESYLATE 5 MG TABLET (FP) PO SCH (10:09)
[2017-11-02] MEDS: PRENATAL VITAMINS W/ FOLIC ACID TABLET (FP) PO SCH (10:10)
[2017-11-02] MEDS: LIDOCAINE 5% TOPICAL PATCH TP SCH (10:10)
[2017-11-02] MEDS: NICOTINE 14 MG/24 HOURS TOPICAL PATCH TD SCH (10:10)
[2017-11-02] MEDS: BUDESONIDE/FORMETEROL FUMARATE 80/4.5 mcg INHALER IH SCH ×2 (10:10→22:23)
[2017-11-02] MEDS ORDERED: PT OWN MED DRAWER 7, Y5N ONE (20:32)
[2017-11-02] MEDS: LIDOCAINE PATCH REMOVAL MC SCH (22:23)
[2017-11-02] MEDS: THIAMINE HCL 100 MG TABLET (FP) PO SCH (22:23)
[2017-11-02] MEDS: diphenhydrAMINE HCL 50 MG CAPSULE PO PRN (22:24)
[2017-11-03] MEDS: PANTOPRAZOLE 20 MG TABLET (FP) PO SCH ×2 (06:51→18:00)
[2017-11-03] MEDS: LISINOPRIL 10 MG TABLET (FP) PO SCH (06:51)
[2017-11-03] MEDS: amLODIPine BESYLATE 5 MG TABLET (FP) PO SCH (10:15)
[2017-11-03] MEDS: LIDOCAINE 5% TOPICAL PATCH TP SCH ×2 (10:16→13:05)
[2017-11-03] MEDS: PRENATAL VITAMINS W/ FOLIC ACID TABLET (FP) PO SCH (10:16)
[2017-11-03] MEDS: NICOTINE 14 MG/24 HOURS TOPICAL PATCH TD SCH ×2 (10:16→10:55)
[2017-11-03] MEDS: BUDESONIDE/FORMETEROL FUMARATE 80/4.5 mcg INHALER IH SCH ×2 (10:16→22:01)
[2017-11-03] MEDS: LIDOCAINE PATCH REMOVAL MC SCH (22:01)
[2017-11-03] MEDS: THIAMINE HCL 100 MG TABLET (FP) PO SCH (22:01)
[2017-11-03] MEDS: diphenhydrAMINE HCL 50 MG CAPSULE PO PRN (22:02)
[2017-11-04] MEDS: PANTOPRAZOLE 20 MG TABLET (FP) PO SCH ×2 (06:39→16:53)
[2017-11-04] MEDS: LISINOPRIL 10 MG TABLET (FP) PO SCH (06:39)
[2017-11-04] MEDS ORDERED: PT OWN MED DRAWER 7, Y5N ONE (08:51)
[2017-11-04] MEDS: LIDOCAINE 5% TOPICAL PATCH TP SCH (09:56)
[2017-11-04] MEDS: amLODIPine BESYLATE 5 MG TABLET (FP) PO SCH (09:56)
[2017-11-04] MEDS: BUDESONIDE/FORMETEROL FUMARATE 80/4.5 mcg INHALER IH SCH ×2 (09:57→22:53)
[2017-11-04] MEDS: PRENATAL VITAMINS W/ FOLIC ACID TABLET (FP) PO SCH (09:57)
[2017-11-04] MEDS: NICOTINE 14 MG/24 HOURS TOPICAL PATCH TD SCH (09:57)
[2017-11-04] MEDS: SUMAtriptan SUCCINATE 50 MG TABLET PO PRN (12:43)
[2017-11-04] MEDS: THIAMINE HCL 100 MG TABLET (FP) PO SCH (22:53)
[2017-11-04] MEDS: diphenhydrAMINE HCL 50 MG CAPSULE PO PRN (22:55)
[2017-11-04] MEDS: LIDOCAINE PATCH REMOVAL MC SCH (23:12)
[2017-11-05] MEDS: PANTOPRAZOLE 20 MG TABLET (FP) PO SCH ×2 (06:09→23:04)
[2017-11-05] MEDS: LISINOPRIL 10 MG TABLET (FP) PO SCH (06:09)
[2017-11-05] MEDS: NICOTINE 14 MG/24 HOURS TOPICAL PATCH TD SCH (10:10)
[2017-11-05] MEDS: PRENATAL VITAMINS W/ FOLIC ACID TABLET (FP) PO SCH (10:10)
[2017-11-05] MEDS: LIDOCAINE 5% TOPICAL PATCH TP SCH (10:10)
[2017-11-05] MEDS: amLODIPine BESYLATE 5 MG TABLET (FP) PO SCH (10:10)
[2017-11-05] MEDS: BUDESONIDE/FORMETEROL FUMARATE 80/4.5 mcg INHALER IH SCH ×2 (10:11→23:34)
[2017-11-05] MEDS: THIAMINE HCL 100 MG TABLET (FP) PO SCH (23:03)
[2017-11-05] MEDS: SUMAtriptan SUCCINATE 50 MG TABLET PO PRN (23:03)
[2017-11-05] MEDS: LIDOCAINE PATCH REMOVAL MC SCH (23:33)
[2017-11-06] MEDS: PANTOPRAZOLE 20 MG TABLET (FP) PO SCH ×2 (06:22→16:52)
[2017-11-06] MEDS: LISINOPRIL 10 MG TABLET (FP) PO SCH (06:22)
[2017-11-06] MEDS: BUDESONIDE/FORMETEROL FUMARATE 80/4.5 mcg INHALER IH SCH ×2 (09:33→21:41)
[2017-11-06] MEDS: amLODIPine BESYLATE 5 MG TABLET (FP) PO SCH (09:33)
[2017-11-06] MEDS: PRENATAL VITAMINS W/ FOLIC ACID TABLET (FP) PO SCH (09:33)
[2017-11-06] MEDS: SUMAtriptan SUCCINATE 50 MG TABLET PO PRN (09:33)
[2017-11-06] MEDS: LIDOCAINE 5% TOPICAL PATCH TP SCH (09:33)
[2017-11-06] MEDS: NICOTINE 14 MG/24 HOURS TOPICAL PATCH TD SCH (09:35)
[2017-11-06] MEDS: THIAMINE HCL 100 MG TABLET (FP) PO SCH (21:41)
[2017-11-06] MEDS: LIDOCAINE PATCH REMOVAL MC SCH (21:41)
[2017-11-06] MEDS: diphenhydrAMINE HCL 50 MG CAPSULE PO PRN (21:42)
--- NOTE | 2017-11-07 06:47 | PN ---
Psychiatric Progress Note Vital Signs: Vital Signs Period Temp Pulse Resp BP Sys/Alejandra Pulse Ox Last 24 Hr 97.3 F 60 18- 116/80 Date of Session: 11/07/17 Chief Complaint:: Discharge Note HPI: Patient addressing Alcohol and Cocaine Dependence comorbid with Nicotine Dependence, Bipolar Disorder and Posttraumatic Stress Disorder ROS: Asthma, HTN, GERD, Low back pain, Migraine headache Current Medications: Active Medications Generic Name Dose Route Start Last Admin Trade Name Freq PRN Reason Stop Dose Admin Acetaminophen 650 mg 10/25/17 13:42 10/30/17 21:23 Tylenol - PO 650 mg Q4H PRN Administration FEVER Al Hydroxide/Mg Hydroxide 30 ml 10/25/17 13:16 10/26/17 03:31 Mylanta Oral Suspension - PO 30 ml Q6H PRN Administration DYSPEPSIA Albuterol Sulfate 2 puff 10/25/17 13:18 Ventolin Hfa Inhaler - IH Q4H PRN ASTHMA Amlodipine Besylate 5 mg 10/26/17 10:00 11/06/17 09:33 Norvasc - PO 5 mg DAILY FERMIN Administration Budesonide/Formoterol Fumarate 2 puff 10/25/17 22:00 11/06/17 21:41 Symbicort 80/4.5mcg - IH Not Given BID FERMIN Cyclobenzaprine HCl 10 mg 10/26/17 10:23 10/27/17 16:31 Flexeril - PO 10 mg BID PRN Administration MUSCLE SPASMS Diphenhydramine HCl 50 mg 10/26/17 11:45 11/06/17 21:42 Benadryl - PO 50 mg HS PRN Administration INSOMNIA Eucalyptus/Menthol/Phenol/Sorbitol 1 each 10/25/17 13:16 Cepastat Lozenge - MM Q4H PRN SORE THROAT Guaifenesin 10 ml 10/25/17 13:16 Robitussin Dm - PO Q6H PRN COUGH Ibuprofen 400 mg 10/25/17 13:16 10/29/17 11:08 Motrin - PO 400 mg Q6H PRN Administration Pain Level 4-6 Lidocaine 1 patch 10/26/17 11:00 11/06/17 09:33 Lidoderm Patch - TP 1 patch DAILY FERMIN Administration Lisinopril 10 mg 10/31/17 06:00 11/06/17 06:22 Prinivil PO 10 mg DAILY@0600 FERMIN Administration Loperamide HCl 4 mg 10/25/17 13:43 Imodium - PO Q6H PRN DIARRHEA Magnesium Citrate 300 ml 10/25/17 13:16 Citroma - PO Q48H PRN CONSTIPATION Magnesium Hydroxide 30 ml 10/25/17 13:16 Milk Of Magnesia - PO DAILY PRN CONSTIPATION Miscellaneous 1 each 10/26/17 22:00 11/06/17 21:41 Lidoderm Patch Removal MC 1 each DAILY@2200 FERMIN Administration Nicotine 14 mg 10/26/17 10:00 11/06/17 09:35 Nicoderm Patch - TD Not Given DAILY FERMIN Nicotine Polacrilex 2 mg 10/25/17 13:16 Nicorette Gum - BUC Q2H PRN NICOTINE REPLACEMENT RX Pantoprazole Sodium 20 mg 10/25/17 17:00 11/06/17 16:52 Protonix - PO 20 mg BID@0600,1700 FERMIN Administration Multivit/Folic Acid/Iron 1 tab 10/26/17 10:00 11/06/17 09:33 Vitamins (Sjr) - PO 1 tab DAILY FERMIN Administration Pseudoephedrine/Triprolidine 1 combo 10/25/17 13:16 10/28/17 06:55 Actifed - PO 1 combo TID PRN Administration NASAL CONGESTION Sumatriptan Succinate 50 mg 10/25/17 13:18 11/06/17 09:33 Imitrex - PO 50 mg DAILY PRN Administration HEADACHE Thiamine HCl 100 mg 10/25/17 22:00 11/06/17 21:41 Vitamin B1 - PO 100 mg HS FERMIN Administration Current Side Effect: No Lab tests ordered: Yes Lab tests reviewed: Yes Provider note:: Patient will complete this program on 11/08/17. He has met his treatment goals and will continue to address his issues in outpatient treatment at [facility]. Told auto service writer that his participation in this program give him time to clear his mind in order understand the chaos around him. He is stable for discharge on 11/08/17 Total face to face time:: 35 Mental Status Exam - Mental Status Exam Alert and Oriented to: Time, Place, Person Cognitive Function: Fair Patient Appearance: Well Groomed Mood: Hopeful, Euthymic Affect: Appropriate Patient Behavior: Cooperative Speech Pattern: Clear Voice Loudness: Normal Thought Process: Intact, Goal Oriented Thought Disorder: Not Present Hallucinations: Denies Suicidal Ideation: Denies Homicidal Ideation: Denies Insight/Judgement: Fair Sleep: Well Appetite: Good Muscle strength/Tone: Normal Gait/Station: Normal Psychiatric Treatment Plan - Problem List (1) Alcohol dependence Current Visit: No (2) Cocaine dependence Current Visit: No Qualifiers: Substance use status: uncomplicated Qualified Code(s): F14.20 - Cocaine dependence, uncomplicated (3) Nicotine dependence Current Visit: No Qualifiers: Nicotine product type: cigarettes Substance use status: in withdrawal Qualified Code(s): F17.213 - Nicotine dependence, cigarettes, with withdrawal (4) PTSD (post-traumatic stress disorder) Current Visit: No (5) Bipolar disorder Current Visit: No (6) Asthma Current Visit: No Qualifiers: Asthma severity: moderate Asthma persistence: persistent Asthma complication type: uncomplicated Qualified Code(s): J45.40 - Moderate persistent asthma, uncomplicated (7) GERD (gastroesophageal reflux disease) Current Visit: No Qualifiers: Esophagitis presence: esophagitis presence not specified Qualified Code(s) : K21.9 - Gastro-esophageal reflux disease without esophagitis (8) Hx of migraine headaches Current Visit: No (9) Low back pain Current Visit: No Qualifiers: Chronicity: chronic Back pain laterality: unspecified Sciatica presence: unspecified whether sciatica present Qualified Code(s): M54.5 - Low back pain ; G89.29 - Other chronic pain (10) HTN (hypertension) Current Visit: Yes Initial treatment plan: Patient will be discharged tomorrow and referred to [facility] for outpatient treatment
[2017-11-07] MEDS: amLODIPine BESYLATE 5 MG TABLET (FP) PO SCH (10:06)
[2017-11-07] MEDS: LIDOCAINE 5% TOPICAL PATCH TP SCH (10:06)
[2017-11-07] MEDS: PRENATAL VITAMINS W/ FOLIC ACID TABLET (FP) PO SCH (10:06)
[2017-11-07] MEDS: LISINOPRIL 10 MG TABLET (FP) PO SCH (10:06)
[2017-11-07] MEDS: NICOTINE 14 MG/24 HOURS TOPICAL PATCH TD SCH (10:06)
[2017-11-07] MEDS: PANTOPRAZOLE 20 MG TABLET (FP) PO SCH ×2 (10:07→17:52)
[2017-11-07] MEDS: BUDESONIDE/FORMETEROL FUMARATE 80/4.5 mcg INHALER IH SCH ×2 (10:07→21:46)
[2017-11-07] MEDS: CYCLOBENZAPRINE HCL 10 MG TABLET (FP) PO PRN (21:46)
[2017-11-07] MEDS: THIAMINE HCL 100 MG TABLET (FP) PO SCH (21:46)
[2017-11-07] MEDS: diphenhydrAMINE HCL 50 MG CAPSULE PO PRN (21:46)
[2017-11-07] MEDS: LIDOCAINE PATCH REMOVAL MC SCH (21:47)
[2017-11-08] MEDS: LISINOPRIL 10 MG TABLET (FP) PO SCH (06:22)
[2017-11-08] MEDS: PANTOPRAZOLE 20 MG TABLET (FP) PO SCH (06:22)
[2017-11-08 07:00] VITALS: BP 117/86; PULSE 64; TEMP 98
== END 2017-11-08 07:15 | disposition home or self-care (01) | DRG 772 ==
LOC: YASAS 18:15 → Y3W 18:16
PROVIDERS: ADMIT Psychiatry & Neurology Psychiatry; ATTEND Psychiatry & Neurology Psychiatry
PROC: HZ42ZZZ Group Counseling for Substance Abuse Treatment, Cognitive-Behavioral (ICD-10-PCS; principal; 2017-10-25)
DX: F10.20 Alcohol dependence, uncomplicated (principal); F14.20 Cocaine dependence, uncomplicated; F17.213 Nicotine dependence, cigarettes, with withdrawal; F31.9 Bipolar disorder, unspecified; F43.10 Post-traumatic stress disorder, unspecified; G40.909 Epilepsy, unspecified, not intractable, without status epilepticus; I10 Essential (primary) hypertension; K21.9 Gastro-esophageal reflux disease without esophagitis; M54.5 Low back pain; G89.29 Other chronic pain

== ENCOUNTER 2018-05-09 10:32 | Inpatient (IN) | payer OTHER ==
[2018-05-09 12:50] VITALS: BMI 25.7
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
[2018-05-09] MEDS ORDERED: IBUPROFEN 400 MG TABLET (FP) PO PRN (13:16)
[2018-05-09] MEDS ORDERED: ACETAMINOPHEN 325 MG TABLET (FP) PO PRN (13:16)
[2018-05-09] MEDS ORDERED: MAGNESIUM CITRATE 300 ML BOTTLE PO PRN (13:16)
[2018-05-09] MEDS ORDERED: MENTHOL/PHENOL 1 EACH UD MM PRN (13:16)
[2018-05-09] MEDS ORDERED: chlordiazePOXIDE HCL 25 MG CAPSULE PO PRN (13:16)
[2018-05-09] MEDS ORDERED: hydrOXYzine PAMOATE 50 MG CAPSULE (FP) PO PRN (13:16)
[2018-05-09] MEDS ORDERED: MAGNESIUM HYDROX 2400MG/30ML ORAL SUSPENSION 30 ML CUP PO PRN (13:16)
[2018-05-09] MEDS ORDERED: P-EPHED 60MG/TRIPROLIDI 2.5MG TABLET PO PRN (13:16)
[2018-05-09] MEDS ORDERED: LOPERAMIDE HCL 2 MG CAPSULE PO PRN (13:16)
[2018-05-09] MEDS ORDERED: MAG HYDROX/AL HYDROX/SIMETH 30 ML UNIT-DOSE CUP PO PRN (13:16)
[2018-05-09] MEDS ORDERED: ALBUTEROL SO4 8 GM HFA INHALER IH PRN (13:55)
[2018-05-09] MEDS: chlordiazePOXIDE HCL 25 MG CAPSULE PO SCH ×2 (17:59→23:56)
[2018-05-09] MEDS: guaiFENesin/D-METHORPHAN HB 10 ML UNIT-DOSE CUPS PO PRN (18:03)
[2018-05-09] MEDS ORDERED: THIAMINE HCL 100 MG TABLET (FP) PO SCH (22:00)
[2018-05-09] MEDS ORDERED: MELATONIN 5 MG TABLETS PO PRN (22:00)
[2018-05-09] MEDS: BUDESONIDE/FORMETEROL FUMARATE 80/4.5 mcg INHALER IH SCH (23:56)
[2018-05-10 01:48] LABS: URINE APPEARANCE CLEAR; URINE BILIRUBIN NEGATIVE (<2.0 mg/dL); URINE COLOR YELLOW; URINE GLUCOSE (UA) NEGATIVE (NEGATIVE); URINE KETONE NEGATIVE (NEGATIVE); URINE LEUK ESTERASE NEGATIVE (NEGATIVE); URINE NITRITE NEGATIVE (NEGATIVE); URINE PROTEIN NEGATIVE (NEGATIVE); URINE UROBILINOGEN 4.0 E.U/dl mg/dL (0.2-1.0)
[2018-05-10] MEDS: guaiFENesin/D-METHORPHAN HB 10 ML UNIT-DOSE CUPS PO PRN (02:14)
[2018-05-10] MEDS ORDERED: LISINOPRIL 10 MG TABLET (FP) PO SCH (06:00)
[2018-05-10] MEDS: chlordiazePOXIDE HCL 25 MG CAPSULE PO SCH ×2 (06:25→10:41)
[2018-05-10] MEDS ORDERED: amLODIPine BESYLATE 5 MG TABLET (FP) PO SCH (10:00)
[2018-05-10] MEDS ORDERED: PANTOPRAZOLE 40 MG TABLET (FP) PO SCH (10:00)
[2018-05-10] MEDS ORDERED: PRENATAL VITAMINS W/ FOLIC ACID TABLET (FP) PO SCH (10:00)
[2018-05-10 10:10] LABS: HEMATOCRIT 38.8 % (35.4-49); MCH 32.6 pg (25.7-33.7); RDW 13.8 % (11.9-15.9)
[2018-05-10 10:13] LABS: HEMOGLOBIN 13.8 GM/dL (11.7-16.9); MCHC 35.7 g/dl (32.0-35.9); MEAN CELL VOLUME 91.5 fl (80-96); MEAN PLT VOLUME 9.4 fl (7.5-11.1); PLATELET COUNT 294 K/MM3 (134-434); RBC 4.23 M/mm3 (4.00-5.60)
[2018-05-10 10:19] LABS: ALBUMIN 3.4 g/dl (3.4-5.0); ALK PHOS 54 U/L (45-117); ANION GAP 8 MMOL/L (8-16); BILIRUBIN,TOTAL 0.5 mg/dL (0.2-1); BLOOD UREA NITROGEN 17 mg/dL (7-18); CALCIUM 8.4 mg/dL (8.5-10.1); CHLORIDE 108 mmol/L (98-107); CO2 24 mmol/L (21-32); CREATININE 1.2 mg/dL (0.55-1.3); GLUCOSE,RANDOM 117 mg/dL (74-106); POTASSIUM 4.3 mmol/L (3.5-5.1); SGOT/AST 22 U/L (15-37); SGPT/ALT 27 U/L (13-61); SODIUM 140 mmol/L (136-145)
[2018-05-10] MEDS: BUDESONIDE/FORMETEROL FUMARATE 80/4.5 mcg INHALER IH SCH (10:40)
[2018-05-10] MEDS ORDERED: TOLNAFTATE 1% CREAM 15 GM TUBE TP SCH (11:30)
--- NOTE | 2018-05-10 11:52 | PN ---
S CIWA - CIWA Score Nausea/Vomitin-No Nausea/No Vomiting Muscle Tremors: 4-Moderate,w/Arms Extend Anxiety: 3 Agitation: 3 Paroxysmal Sweats: 3 Orientation: 0-Oriented Tacttile Disturbances: 0-None Auditory Disturbances: 0-None Visual Disturbances: 0-None Headache: 0-None Present CIWA-Ar Total Score: 13 S Progress Note (SOAP) Subjective: dry/itchy feet and toes sweats interrupted sleep agitation body aches Objective: 05/10/18 11:53 Vital Signs Temperature 98.4 F 05/10/18 09:17 Pulse Rate 78 05/10/18 09:17 Respiratory Rate 18 05/10/18 09:17 Blood Pressure 131/92 05/10/18 09:17 O2 Sat by Pulse Oximetry (%) Laboratory Tests 05/09/18 05/10/18 05/10/18 14:50 07:00 07:00 WBC 4.0 RBC 4.23 Hgb 13.8 Hct 38.8 MCV 91.5 MCH 32.6 MCHC 35.7 RDW 13.8 Plt Count 294 MPV 9.4 Sodium 140 Potassium 4.3 Chloride 108 H Carbon Dioxide 24 Anion Gap 8 BUN 17 Creatinine 1.2 Creat Clearance w eGFR > 60 Random Glucose 117 H Calcium 8.4 L Total Bilirubin 0.5 AST 22 ALT 27 Alkaline Phosphatase 54 Total Protein 6.0 L Albumin 3.4 Urine Color Yellow Urine Appearance Clear Urine pH 5.0 Ur Specific Chloride 1.027 Urine Protein Negative Urine Glucose (UA) Negative Urine Ketones Negative Urine Blood Negative Urine Nitrite Negative Urine Bilirubin Negative Urine Urobilinogen 4.0 e.u/dl Ur Leukocyte Esterase Negative RPR Titer 05/10/18 07:00 WBC RBC Hgb Hct MCV MCH MCHC RDW Plt Count MPV Sodium Potassium Chloride Carbon Dioxide Anion Gap BUN Creatinine Creat Clearance w eGFR Random Glucose Calcium Total Bilirubin AST ALT Alkaline Phosphatase Total Protein Albumin Urine Color Urine Appearance Urine pH Ur Specific Chloride Urine Protein Urine Glucose (UA) Urine Ketones Urine Blood Urine Nitrite Urine Bilirubin Urine Urobilinogen Ur Leukocyte Esterase RPR Titer Nonreactive aaox3 ambulating no acute distress Assessment: 05/10/18 11:55 withdrawals sx Plan: continue detox increase fluids tinactin cream for feet
[2018-05-10] MEDS ORDERED: chlordiazePOXIDE HCL 25 MG CAPSULE PO SCH (17:00)
[2018-05-10 17:39] VITALS: TEMP 97.7
[2018-05-10 21:56] VITALS: BP 141/61; PULSE 76
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
--- NOTE | 2018-05-10 22:48 | DS ---
[facility] Detox Discharge Summary Admission Date: 05/09/18 Discharge Date: 05/10/18 (Administrative Discharge) - History Present History: Alcohol Dependence Additional Comments: Patient admitted w/ acohol withdrawal symptoms. Pertinent Past History: 52 yom w/ long hx alcohol use disorder and co-occurring cocaine use. - Physical Exam Results Vital Signs: Vital Signs Temperature 97.7 F 05/10/18 21:55 Pulse Rate 76 05/10/18 21:55 Respiratory Rate 18 05/10/18 21:55 Blood Pressure 141/61 05/10/18 21:55 O2 Sat by Pulse Oximetry (%) Pertinent Admission Physical Exam Findings: Admitted in alcohol withdrawal and assistance w/ detox. Co-occurring cocaine use , HTN, Asthma, Gerd. Laboratory Last Values WBC 4.0 K/mm3 (4.0-10.0) 05/10/18 07:00 RBC 4.23 M/mm3 (4.00-5.60) 05/10/18 07:00 Hgb 13.8 GM/dL (11.7-16.9) 05/10/18 07:00 Hct 38.8 % (35.4-49) 05/10/18 07:00 MCV 91.5 fl (80-96) 05/10/18 07:00 MCH 32.6 pg (25.7-33.7) 05/10/18 07:00 MCHC 35.7 g/dl (32.0-35.9) 05/10/18 07:00 RDW 13.8 % (11.9-15.9) 05/10/18 07:00 Plt Count 294 K/MM3 (134-434) 05/10/18 07:00 MPV 9.4 fl (7.5-11.1) 05/10/18 07:00 Sodium 140 mmol/L (136-145) 05/10/18 07:00 Potassium 4.3 mmol/L (3.5-5.1) 05/10/18 07:00 Chloride 108 mmol/L (98-107) H 05/10/18 07:00 Carbon Dioxide 24 mmol/L (21-32) 05/10/18 07:00 Anion Gap 8 MMOL/L (8-16) 05/10/18 07:00 BUN 17 mg/dL (7-18) 05/10/18 07:00 Creatinine 1.2 mg/dL (0.55-1.3) 05/10/18 07:00 Creat Clearance w eGFR > 60 (>60) 05/10/18 07:00 Random Glucose 117 mg/dL (74-106) H 05/10/18 07:00 Calcium 8.4 mg/dL (8.5-10.1) L 05/10/18 07:00 Total Bilirubin 0.5 mg/dL (0.2-1) 05/10/18 07:00 AST 22 U/L (15-37) 05/10/18 07:00 ALT 27 U/L (13-61) 05/10/18 07:00 Alkaline Phosphatase 54 U/L (45-117) 05/10/18 07:00 Total Protein 6.0 g/dl (6.4-8.2) L 05/10/18 07:00 Albumin 3.4 g/dl (3.4-5.0) 05/10/18 07:00 Urine Color Yellow 05/09/18 14:50 Urine Appearance Clear 05/09/18 14:50 Urine pH 5.0 (5.0-8.0) 05/09/18 14:50 Ur Specific Era 1.027 (1.010-1.035) 05/09/18 14:50 Urine Protein Negative (NEGATIVE) 05/09/18 14:50 Urine Glucose (UA) Negative (NEGATIVE) 05/09/18 14:50 Urine Ketones Negative (NEGATIVE) 05/09/18 14:50 Urine Blood Negative (NEGATIVE) 05/09/18 14:50 Urine Nitrite Negative (NEGATIVE) 05/09/18 14:50 Urine Bilirubin Negative (<2.0 mg/dL) 05/09/18 14:50 Urine Urobilinogen 4.0 e.u/dl mg/dL (0.2-1.0) 05/09/18 14:50 Ur Leukocyte Esterase Negative (NEGATIVE) 05/09/18 14:50 RPR Titer Nonreactive (NONREACTIVE) 05/10/18 07:00 Labs reviewed. - Treatment Hospital Course: Detox Protocol Followed (Patient did not complete detox due to behavioral issues on unit.), Discharged Condition Good (Patientwas alert and oriented w/ steady gait.) - Medication Discharge Medications: Ambulatory Orders Esomeprazole Mag Trihydrate [Nexium] 40 mg PO DAILY 02/16/14 Salmeterol/Fluticasone [Advair 250Mcg/50Mcg -] 1 inh PO BID 06/04/14 Albuterol Sulfate Inhaler - [Ventolin HFA Inhaler -] 2 inh PO Q4H PRN #1 inh Lisinopril [Prinivil] 10 mg PO DAILY@0600 #30 tablet 01/11/17 Sumatriptan Succinate [Imitrex -] 50 mg PO DAILY PRN #10 tab 01/11/17 Amlodipine Besylate 5 mg PO DAILY #30 tablet 10/25/17 Fluticasone/Salmeterol [Advair 250-50 Diskus] 1 each IH BID #1 blst.w.dev - Diagnosis (1) Alcohol dependence Status: Acute Qualifiers: Substance use status: in withdrawal Complication of substance-induced condition: uncomplicated Qualified Code(s): F10.230 - Alcohol dependence with withdrawal, uncomplicated (2) Cocaine dependence Status: Chronic Qualifiers: Substance use status: uncomplicated Qualified Code(s): F14.20 - Cocaine dependence, uncomplicated (3) Asthma Status: Chronic Qualifiers: Asthma severity: unspecified severity Asthma persistence: unspecified Asthma complication type: unspecified Qualified Code(s): J45.909 - Unspecified asthma, uncomplicated (4) GERD (gastroesophageal reflux disease) Status: Chronic Qualifiers: Esophagitis presence: esophagitis presence not specified Qualified Code(s) : K21.9 - Gastro-esophageal reflux disease without esophagitis (5) HTN (hypertension) Status: Chronic Qualifiers: Hypertension type: essential hypertension Qualified Code(s): I10 - Essential (primary) hypertension (6) Nicotine dependence Status: Chronic Qualifiers: Nicotine product type: cigarettes Substance use status: in withdrawal Qualified Code(s): F17.213 - Nicotine dependence, cigarettes, with withdrawal - AMA Did Patient Leave Against Medical Advice: No
[2018-05-11] MEDS ORDERED: chlordiazePOXIDE 5 MG CAPSULE PO SCH (17:00)
[2018-05-12] MEDS ORDERED: chlordiazePOXIDE HCL 10 MG CAPSULE PO SCH (17:00)
== END 2018-05-10 20:55 | disposition left against medical advice (07) | DRG 774 ==
LOC: YASAS 10:32 → Y6N 13:13
PROVIDERS: ADMIT Neuromusculoskeletal Medicine & OMM; ATTEND Neuromusculoskeletal Medicine & OMM
PROC: HZ2ZZZZ Detoxification Services for Substance Abuse Treatment (ICD-10-PCS; principal; 2018-05-09)
DX: F10.230 Alcohol dependence with withdrawal, uncomplicated (principal); F14.10 Cocaine abuse, uncomplicated; F17.210 Nicotine dependence, cigarettes, uncomplicated; F31.9 Bipolar disorder, unspecified; I10 Essential (primary) hypertension; K21.9 Gastro-esophageal reflux disease without esophagitis; J45.40 Moderate persistent asthma, uncomplicated; B35.3 Tinea pedis; M54.5 Low back pain; G89.29 Other chronic pain; R63.4 Abnormal weight loss; Z68.25 Body mass index [BMI] 25.0-25.9, adult; F91.8 Other conduct disorders; Z91.19 Patient's noncompliance with other medical treatment and regimen
CPT/HCPCS: 36415; 80053; 81003; 85027; 86593